=== PATIENT | male | born 1945 | race Caucasian/White ===

== ENCOUNTER → 2019-12-18 09:06 | Outpatient (BNVA) | payer OTHER, SELFPAY | PROVIDERS: Family Provider Family Medicine Adult Medicine; PCP Emergency Medicine Emergency Medical Services; Visit Provider Urology | DX: C68.9 Malignant neoplasm of urinary organ, unspecified (principal); N47.1 Phimosis; N48.1 Balanitis | CPT/HCPCS: 81001 ==

== ENCOUNTER → 2020-08-09 10:06 | Outpatient (BNVA) | payer OTHER, SELFPAY | PROVIDERS: Family Provider Family Medicine Adult Medicine; PCP Emergency Medicine Emergency Medical Services; Visit Provider Urology | DX: C68.9 Malignant neoplasm of urinary organ, unspecified (principal); N48.1 Balanitis; N47.1 Phimosis | CPT/HCPCS: 81003 ==

== ENCOUNTER → 2021-02-08 14:02 | Outpatient (BNVA) | payer OTHER, SELFPAY | PROVIDERS: Family Provider Family Medicine Adult Medicine; PCP Emergency Medicine Emergency Medical Services; Visit Provider Urology | DX: N40.0 Benign prostatic hyperplasia without lower urinary tract symptoms (principal); Z12.5 Encounter for screening for malignant neoplasm of prostate; C68.9 Malignant neoplasm of urinary organ, unspecified; N47.1 Phimosis; N48.1 Balanitis | CPT/HCPCS: 81003; G0103 ==

== ENCOUNTER → 2021-05-17 14:04 | Outpatient (BNVA) | payer OTHER, SELFPAY | PROVIDERS: Family Provider Family Medicine Adult Medicine; PCP Emergency Medicine Emergency Medical Services; Referring Provider Emergency Medicine Emergency Medical Services; Visit Provider Internal Medicine | DX: E11.65 Type 2 diabetes mellitus with hyperglycemia (principal); E11.59 Type 2 diabetes mellitus with other circulatory complications; E11.22 Type 2 diabetes mellitus with diabetic chronic kidney disease; N18.30 Chronic kidney disease, stage 3 unspecified; I25.10 Atherosclerotic heart disease of native coronary artery without angina pectoris; E78.5 Hyperlipidemia, unspecified; C68.9 Malignant neoplasm of urinary organ, unspecified; Z79.4 Long term (current) use of insulin; Z79.84 Long term (current) use of oral hypoglycemic drugs ==

== ENCOUNTER 2021-05-17 15:41 | Outpatient (CLI) | payer OTHER, SELFPAY ==
[2021-05-17 17:16] LABS: Estmated Average Glucose 212
[2021-05-17 17:40] LABS: Alanine Aminotransferase 50 U/L (0-41); Albumin Level 4.8 g/dL (3.5-5.2); Alkaline Phosphatase 70 IU/L (40-130); Anion Gap 19.8 (5-19); Aspartate Amino Transferase 41 U/L (0-40); Blood Urea Nitrogen 22 mg/dL (8-23); Calcium 9.8 mg/dL (8.5-10.5); Carbon Dioxide 23 mmol/L (22-29); Chloride 98 mmol/L (98-107); Chol HDL Ratio 4.81 mg/dL (1.0-5.00); Cholesterol 178 mg/dL (0-200); Globulin 2.6 g/dL (1.3-4.6); Glucose 128 mg/dL (65-115); HDL Cholesterol 37 mg/dL (60-100); LDL Cholesterol Calculated 82 mg/dL (50-129); LDL HDL Ratio 2.22 RATIO (0.00-3.22); Osmolality Calculated 289 mOsm/kg (285-295); Potassium 3.8 mmol/L (3.5-5.1); Sodium 137 mmol/L (136-145); Total Bilirubin 0.4 mg/dL (0.15-1.2); Total Protein 7.4 g/dL (6.6-8.7); Triglycerides 293 mg/dL (0-150)
== END 2021-05-17 15:42 | disposition home or self-care (01) ==
PROVIDERS: PCP Emergency Medicine Emergency Medical Services; Visit Provider Internal Medicine
DX: E11.9 Type 2 diabetes mellitus without complications (principal)
CPT/HCPCS: 80053; 80061; 83036; 99204

== ENCOUNTER → 2021-05-31 15:00 | Outpatient (BNVA) | payer OTHER, SELFPAY | PROVIDERS: PCP Emergency Medicine Emergency Medical Services; Visit Provider Internal Medicine | DX: E11.65 Type 2 diabetes mellitus with hyperglycemia (principal); E11.59 Type 2 diabetes mellitus with other circulatory complications; E11.22 Type 2 diabetes mellitus with diabetic chronic kidney disease; N18.30 Chronic kidney disease, stage 3 unspecified; I25.10 Atherosclerotic heart disease of native coronary artery without angina pectoris; E78.5 Hyperlipidemia, unspecified; E16.0 Drug-induced hypoglycemia without coma; T38.3X5A Adverse effect of insulin and oral hypoglycemic [antidiabetic] drugs, initial encounter; Z79.4 Long term (current) use of insulin; Z79.84 Long term (current) use of oral hypoglycemic drugs; Z87.891 Personal history of nicotine dependence | CPT/HCPCS: 99214; 99215 ==

== ENCOUNTER → 2021-08-30 14:05 | Outpatient (BNVA) | payer OTHER, SELFPAY | PROVIDERS: PCP Emergency Medicine Emergency Medical Services; Visit Provider Internal Medicine | DX: E11.65 Type 2 diabetes mellitus with hyperglycemia (principal); E11.59 Type 2 diabetes mellitus with other circulatory complications; E11.22 Type 2 diabetes mellitus with diabetic chronic kidney disease; N18.30 Chronic kidney disease, stage 3 unspecified; E16.0 Drug-induced hypoglycemia without coma; T38.3X5A Adverse effect of insulin and oral hypoglycemic [antidiabetic] drugs, initial encounter; I25.10 Atherosclerotic heart disease of native coronary artery without angina pectoris; E78.5 Hyperlipidemia, unspecified; C68.9 Malignant neoplasm of urinary organ, unspecified; Z79.4 Long term (current) use of insulin; Z79.84 Long term (current) use of oral hypoglycemic drugs | CPT/HCPCS: 80053; 80061; 83036; 99214 ==

== ENCOUNTER → 2021-11-30 13:57 | Outpatient (BNVA) | payer OTHER, SELFPAY | PROVIDERS: PCP Emergency Medicine Emergency Medical Services; Visit Provider Internal Medicine | DX: E11.22 Type 2 diabetes mellitus with diabetic chronic kidney disease (principal); N18.30 Chronic kidney disease, stage 3 unspecified; E11.59 Type 2 diabetes mellitus with other circulatory complications; E11.65 Type 2 diabetes mellitus with hyperglycemia; E11.649 Type 2 diabetes mellitus with hypoglycemia without coma; E78.5 Hyperlipidemia, unspecified; I25.10 Atherosclerotic heart disease of native coronary artery without angina pectoris; E16.0 Drug-induced hypoglycemia without coma; T38.3X5A Adverse effect of insulin and oral hypoglycemic [antidiabetic] drugs, initial encounter; Z79.4 Long term (current) use of insulin; Z79.84 Long term (current) use of oral hypoglycemic drugs; Z87.891 Personal history of nicotine dependence | CPT/HCPCS: 36415; 80053; 80061; 83036; 99214 ==

== ENCOUNTER 2022-02-14 08:15 | Outpatient (CLI) | payer OTHER, SELFPAY ==
[2022-02-14 09:11] LABS: PSA Screen - Urology 5.23 ng/mL (0-4)
== END 2022-02-14 08:16 | disposition home or self-care (01) ==
LOC: LAB 08:16
PROVIDERS: PCP Emergency Medicine Emergency Medical Services; Visit Provider Urology
DX: Z12.5 Encounter for screening for malignant neoplasm of prostate (principal); N48.1 Balanitis
CPT/HCPCS: 36415; 52000; 81003; 99213; G0103

== ENCOUNTER → 2022-04-10 16:13 | Outpatient (BNVA) | payer OTHER, SELFPAY | PROVIDERS: PCP Emergency Medicine Emergency Medical Services; Visit Provider Internal Medicine | DX: E11.65 Type 2 diabetes mellitus with hyperglycemia (principal); E78.5 Hyperlipidemia, unspecified; N18.30 Chronic kidney disease, stage 3 unspecified; E11.22 Type 2 diabetes mellitus with diabetic chronic kidney disease; E11.59 Type 2 diabetes mellitus with other circulatory complications; E11.649 Type 2 diabetes mellitus with hypoglycemia without coma; E83.52 Hypercalcemia; I25.10 Atherosclerotic heart disease of native coronary artery without angina pectoris; E16.0 Drug-induced hypoglycemia without coma; T38.3X5A Adverse effect of insulin and oral hypoglycemic [antidiabetic] drugs, initial encounter; Z79.84 Long term (current) use of oral hypoglycemic drugs; Z79.4 Long term (current) use of insulin | CPT/HCPCS: 36415; 80053; 80061; 83036; 99214 ==

== ENCOUNTER 2022-04-18 08:55 | Outpatient (CLI) | payer OTHER, SELFPAY ==
[2022-04-18 10:50] LABS: Calcium 10.6 mg/dL (8.5-10.5)
[2022-04-26 17:35] LABS: PTH Related Peptide (Protein) 9 pg/mL (11-20)
== END 2022-04-18 08:56 | disposition home or self-care (01) ==
PROVIDERS: PCP Emergency Medicine Emergency Medical Services; Visit Provider Internal Medicine
DX: E83.52 Hypercalcemia (principal)
CPT/HCPCS: 36415; 82310; 82542

== ENCOUNTER 2022-05-12 10:07 | Outpatient (CLI) | payer OTHER, SELFPAY ==
[2022-05-12 11:56] LABS: Prostate Specific AG Urology 4.51 ng/mL (0-4)
== END 2022-05-12 10:08 | disposition home or self-care (01) ==
LOC: LAB 10:09
PROVIDERS: PCP Emergency Medicine Emergency Medical Services; Visit Provider Urology
DX: R97.20 Elevated prostate specific antigen [PSA] (principal)
CPT/HCPCS: 36415; 84153

== ENCOUNTER → 2022-05-16 10:51 | Outpatient (BNVA) | payer OTHER, SELFPAY | PROVIDERS: PCP Emergency Medicine Emergency Medical Services; Visit Provider Urology | DX: C68.9 Malignant neoplasm of urinary organ, unspecified (principal); R97.20 Elevated prostate specific antigen [PSA]; Z12.5 Encounter for screening for malignant neoplasm of prostate; N48.1 Balanitis; N47.1 Phimosis | CPT/HCPCS: 99213 ==

== ENCOUNTER → 2022-08-15 13:47 | Outpatient (BNVA) | payer OTHER, SELFPAY | PROVIDERS: PCP Emergency Medicine Emergency Medical Services; Visit Provider Internal Medicine | DX: E11.65 Type 2 diabetes mellitus with hyperglycemia (principal); E11.649 Type 2 diabetes mellitus with hypoglycemia without coma; E11.22 Type 2 diabetes mellitus with diabetic chronic kidney disease; E11.59 Type 2 diabetes mellitus with other circulatory complications; N18.30 Chronic kidney disease, stage 3 unspecified; E78.5 Hyperlipidemia, unspecified; I25.10 Atherosclerotic heart disease of native coronary artery without angina pectoris; X58.XXXA Exposure to other specified factors, initial encounter; Z79.84 Long term (current) use of oral hypoglycemic drugs; Z79.4 Long term (current) use of insulin; E16.0 Drug-induced hypoglycemia without coma; T38.3X5A Adverse effect of insulin and oral hypoglycemic [antidiabetic] drugs, initial encounter | CPT/HCPCS: 99214 ==

== ENCOUNTER 2022-11-08 20:48 | Inpatient (IN) | payer OTHER, SELFPAY ==
[2022-11-08 20:55] VITALS: BP 130/65; PULSE 123; RESP 22; TEMP 37; O2SAT 90
--- NOTE | 2022-11-08 21:08 | ECG_ITS ---
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 Measurements Intervals [place] Rate: 124 P: 59 [place]: 178 QRS: 52 QRSD: 84 T: 77 QT: 318 QTc: 458 Interpretive Statements SINUS TACHYCARDIA ABNORMAL RHYTHM ECG INTERPRETATION BASED ON A DEFAULT AGE OF 40 YEARS Compared to ECG 06/07/2017 12:18:39 Sinus rhythm no longer present Electronically Signed On 11-09-2022 14:46:26 CDT by Dale Giron M.D. [id number]
--- NOTE | 2022-11-08 21:10 | XRR_ITS ---
PROCEDURE INFORMATION: Exam: XR Chest Exam date and time: 11/08/2022 9:15 PM Age: 77 years old Clinical indication: Shortness of breath; Additional info: SOB TECHNIQUE: Imaging protocol: Radiologic exam of the chest. Views: 1 view. COMPARISON: No relevant prior studies available. FINDINGS: Lungs: Lungs are hyperinflated. Clear parenchyma. Pleural spaces: No pleural effusion. No pneumothorax. Heart/Mediastinum: Cardiac silhouette is normal in size for technique. Vasculature: Mild calcification at the aortic arch. Bones/joints: Age appropriate. XR/XR chest 1V portable [id number] IMPRESSION: Hyperinflated but clear lungs. No other acute cardiopulmonary abnormality.
[2022-11-08 21:41] LABS: Basophils % 0.4 %; Eosinophils % 0.1 %; Lymphocytes # 1.4 10^3/uL (0.8-4.8); Lymphocytes % 15.3 %; Mean Corpuscular HGB Conc 34.1 g/dL (30.0-36.0); Mean Corpuscular Hemoglobin 30.4 pg (28.0-34.0); Mean Corpuscular Volume 89.1 fl (80-94); Mean Platelet Volume 9.6 fL (7.4-10.4); Monocytes % 11.2 %; Neutrophils % 72.4 %; Nucleated Red Blood Cells % 0 %; Platelet Count 163 10^3/cmm (130-400)
[2022-11-08 21:52] LABS: INR 1.13 (0.8-1.2)
--- NOTE | 2022-11-08 21:53 | CTR_ITS ---
PROCEDURE INFORMATION: Exam: CT Head Without Contrast Exam date and time: 11/08/2022 10:50 PM Age: 77 years old Clinical indication: Weakness, extremity; Bilateral TECHNIQUE: Imaging protocol: Computed tomography of the head without contrast. Radiation optimization: All CT scans at this facility use at least one of these dose optimization techniques: automated exposure control; mA and/or kV adjustment per patient size (includes targeted exams where dose is matched to clinical indication); or iterative reconstruction. REPORTING DATA: Count of CT and Cardiac NM exams in prior 12 months: This patient has received 0 known CTs and 0 known cardiac nuclear medicine studies in the 12 months prior to the current study. COMPARISON: No relevant prior studies available. RADIATION DOSE METRICS: Total DLP (mGy-cm): 1081.33 FINDINGS: Brain: No hemorrhage. Unremarkable white matter. No mass effect. Preserved payton-white interfaces. Cerebral ventricles: No ventriculomegaly. Paranasal sinuses: Visualized sinuses are unremarkable. No fluid levels. Mastoid air cells: Visualized mastoid air cells are well aerated. Bones/joints: Unremarkable. No acute fracture. Soft tissues: Unremarkable. CT/CT head wo con* [id number] IMPRESSION: No evidence of acute intracranial hemorrhage, mass effect, or edema.
--- NOTE | 2022-11-08 21:53 | CTR_ITS ---
PROCEDURE INFORMATION: Exam: CT Chest Without Contrast; Diagnostic Exam date and time: 11/08/2022 10:52 PM Age: 77 years old Clinical indication: Shortness of breath; Additional info: SOB TECHNIQUE: Imaging protocol: Diagnostic computed tomography of the chest without contrast. Radiation optimization: All CT scans at this facility use at least one of these dose optimization techniques: automated exposure control; mA and/or kV adjustment per patient size (includes targeted exams where dose is matched to clinical indication); or iterative reconstruction. REPORTING DATA: Count of CT and Cardiac NM exams in prior 12 months: This patient has received 0 known CTs and 0 known cardiac nuclear medicine studies in the 12 months prior to the current study. COMPARISON: CR (CHEST, ) 11/08/2022 9:15 PM RADIATION DOSE METRICS: Total DLP (mGy-cm): 536.18 FINDINGS: Lungs: Biapical scarring. 4 mm left lower lobe calcified granuloma. Solid nodule abutting the right major fissure measures 4 mm on series 5, image 36. Minimal subpleural reticular opacities are seen in the lung bases. No focal pneumonia. Small right lower lobe calcified granuloma. Minimal apical paraseptal emphysema. Pleural spaces: Unremarkable. No pneumothorax. No pleural effusion. Heart: Unremarkable. No cardiomegaly. No pericardial effusion. Coronary arteries: Mild coronary artery atherosclerosis. Lymph nodes: Left hilar calcified nodes consistent with old granulomatous disease. Vasculature: Unremarkable. No aortic aneurysm. Diaphragm: Small hiatal hernia. Liver: Fatty liver. Spleen: Splenic granuloma. Adrenal glands: Thickening of the adrenal glands likely adenomatous hyperplasia. Bones/joints: Unremarkable. No acute fracture. Soft tissues: Unremarkable. CT/CT chest wo con [id number] IMPRESSION: 1. No evidence of pneumonia. Minimal subpleural interstitial opacities in the lung bases are favored to be chronic. Correlate with history. 2. There is a 4 mm solid right lower lobe nodule abutting the fissure most likely an intrapulmonary lymph node. For patients at low risk (minimal or absent history of smoking and of other known risk factors), no routine follow-up is indicated. For patients at high risk (history of smoking or of other known risk factors), consider optional CT Chest at 12 months. (Reference: Jhonny) REFERENCES: Jhonny Rich et al. Guidelines for Management of Incidental Pulmonary Nodules Detected on CT Images: From the Fleischner Society 2017. Radiology. 2017;284(1):228-243.
[2022-11-08 21:55] LABS: D Dimer 0.28 ug/mIFEU (0-0.59)
--- NOTE | 2022-11-08 21:55 | W.ED.SOB ---
HPI - SOB/Dyspnea General: Chief Complaint: Shortness of Breath/Dyspnea Stated Complaint: sob low o2 Time Seen by Provider: 11/08/22 21:09 Source: patient Mode of arrival: ambulatory Limitations: no limitations History of Present Illness: HPI Narrative: 77-year-old male states that he felt like he got overheated 2 days ago he states that since then he just has not felt right. He states he has had some shortness of breath daughter states he does seem to have some confusion at times as well. States he just feels weak no focal deficits no slurred speech he is answering all my questions appropriately but he states that he did feel confused earlier today. He is tachycardic with some mild hypoxia. He denies any cough denies any chest pain. Associated symptoms: Deny abdominal pain, chest pain, fever(s), nausea or vomiting Review of Systems Const: Reports: fatigue and malaise; Denies: fever(s) or chills Eyes: Denies: blurry vision or eye discomfort ENMT: Denies: throat pain or dental pain Card: Denies: chest pain Resp: Reports: dyspnea GI: Denies: abdominal pain, nausea, vomiting or diarrhea : Denies: dysuria or difficulty starting urination Musc: Denies: neck pain or back pain Skin/Breast: Denies: rash Neuro: Reports: confusion; Denies: headache(s) Psych: Denies: depression PFSH ED PFSH: Medical History BPH (benign prostatic hyperplasia) Elevated PSA Mild in the 4-5 range. No distinct nodularity but some mild firmness on LALO at evaluation January 2022 H/O coronary angiogram Incomplete bladder emptying Transitional cell carcinoma Surgical History H/O transurethral destruction of bladder lesion History of biopsy of bladder Family History Mother , at age 90 complications after cholecystectomy No problems noted. Father , at age 78- Heart disease Social History Smoking and tobacco status: former smoker Alcohol intake: never Marital status: Current occupational status: retired Physical Exam Const: COMMON NORMALS: patient oriented x3 HENMT: COMMON NORMALS: normocephalic and atraumatic HEAD & SCALP: normocephalic and atraumatic Neck/C-Spine: COMMON NORMALS: full ROM and supple Chest: COMMONS NORMALS: normal inspection of the chest and normal palpation of entire chest wall Resp: COMMON NORMALS: normal respiratory effort, No retractions, No use of accessory muscles and clear to auscultation bilaterally AUSCULTATION: clear to auscultation bilaterally Cardio: COMMON NORMALS: regular rhythm and No murmurs present (Cardio) RATE: tachycardic RHYTHM: regular rhythm GI: COMMON NORMALS: Normal to inspection, nondistended, normoactive bowel sounds present, Soft to palpation, non-tender and no masses PALPATION: Yes Soft to palpation Extremity: COMMON NORMALS: normal to inspection and full ROM Neuro: COMMON NORMALS: patient oriented x3, moves all extremities and no focal motor deficits CRANIAL NERVES: Yes CN normal except as noted SPEECH: speech normal GAIT: Yes Normal gait present MOTOR EXAM: 5/5 motor strength present throughout Psych: COMMON NORMALS: mental status grossly normal, Normal thought process present and cooperative THOUGHT PROCESS: Normal thought process present Skin: COMMON NORMALS: no rashes or lesions noted and no wounds GENERAL SKIN EXAM: no rashes or lesions noted Course Vital Signs: Vital signs: Vital Signs Temperature 98.6 F 11/08/22 20:55 Pulse Rate 132 H 11/08/22 23:30 Respiratory Rate 30 H 11/08/22 23:30 Blood Pressure 150/84 11/08/22 23:30 Pulse Oximetry 94 11/08/22 23:30 Oxygen Delivery Me thod Nasal Cannula 11/08/22 23:30 Oxygen Flow Rate 2 11/08/22 23:30 MDM - SOB/Dyspnea Medical Decision Making Patient presents with confusion along with some shortness of breath he has been hypoxic here requiring 2 to [address] of his chest showed no acute abnormalities. His D-dimer here is negative BNP is negative as well no signs of PE unable to do a CT angiogram due to his creatinine but he did have a negative D-dimer he has been answering my questions here appropriately but per family been quite confused throughout the day spoke to the hospitalist will admit at this time for observation due to his hypoxia and confusion Medical Records I reviewed the patient's medical records. Lab Data I reviewed the patient's lab results. 11/08/22 21:30 11/08/22 21:30 Labs/Radiology: Radiology Impressions Chest X-Ray 11/08/22 21:10 IMPRESSION: Hyperinflated but clear lungs. No other acute cardiopulmonary abnormality. Chest CT 11/08/22 21:53 IMPRESSION: 1. No evidence of pneumonia. Minimal subpleural interstitial opacities in the lung bases are favored to be chronic. Correlate with history. 2. There is a 4 mm solid right lower lobe nodule abutting the fissure most likely an intrapulmonary lymph node. For patients at low risk (minimal or absent history of smoking and of other known risk factors), no routine follow-up is indicated. For patients at high risk (history of smoking or of other known risk factors), consider optional CT Chest at 12 months. (Reference: Jhonny) REFERENCES: Jhonny Rich, et al. Guidelines for Management of Incidental Pulmonary Nodules Detected on CT Images: From the Fleischner Society 2017. Radiology. 2017;284(1):228-243. Head CT 11/08/22 21:53 IMPRESSION: No evidence of acute intracranial hemorrhage, mass effect, or edema. Laboratory Results WBC 9.0 10^3/uL (4.0-10.0) 11/08/22 21:30 RBC 4.60 10^6/uL (4.1-5.3) 11/08/22 21:30 Hgb 14.0 g/dL (11.7-16.6) 11/08/22 21:30 Hct 41.0 % (42.0-52.0) L 11/08/22 21:30 MCV 89.1 fl (80-94) 11/08/22 21:30 MCH 30.4 pg (28.0-34.0) 11/08/22 21:30 MCHC 34.1 g/dL (30.0-36.0) 11/08/22 21:30 RDW 13.0 % (12.1-15.1) 11/08/22 21:30 Plt Count 163 10^3/cmm (130-400) 11/08/22 21: MPV 9.6 fL (7.4-10.4) 11/08/22 21: Neut % (Auto) 72.4 % 11/08/22 21: Lymph % (Auto) 15.3 % 11/08/22 21:30 [place] % (Auto) 11.2 % 11/08/22 21: Eos % (Auto) 0.1 % 11/08/22 21:30 Baso % (Auto) 0.4 % 11/08/22 21:30 Neut # (Auto) 6.50 10^3/uL (1.8-7.7) 11/08/22 21: Lymph # (Auto) 1.4 10^3/uL (0.8-4.8) 11/08/22 21: [place] # (Auto) 1.0 10^3/uL (0.2-0.9) H 11/08/22 21: Eos # (Auto) 0.0 10^3/uL (0.0-0.8) 11/08/22 21: Baso # (Auto) 0.0 10^3/uL (0.0-0.1) 11/08/22 21: Nucleated RBC % (auto) 0 % 11/08/22 21: Nucleated RBCs # 0.0 /100WBC 11/08/22 21: PT 14.90 SECONDS (12.1-14.9) 11/08/22 21: INR 1.13 (0.8-1.2) 11/08/22 21: D-Dimer 0.28 ug/mIFEU (0-0.59) 11/08/22 21:30 Specimen Type Arterial 11/08/22 22:12 Sample Site Radial, right 11/08/22 22:12 ABG pH 7.43 (7.35-7.45) 11/08/22 22:12 ABG pCO2 37.2 mmHg (35-45) 11/08/22 22:12 ABG pO2 72.5 mmHg (80.0-100.0) L 11/08/22 22:12 ABG HCO3 24.8 mmol/L (22-26) 11/08/22 22:12 ABG Base Excess 0.7 mmol/L (-2.0-2.0) 11/08/22 22:12 [place] Test Pos 11/08/22 22:12 Hematocrit 43.1 % (42-52) 11/08/22 22:12 O2 Delivery Device Nc 11/08/22 22:12 O2 Liters/Min 2.0 % 11/08/22 22:12 FiO2 28.0 % 11/08/22 22:12 Pastrycook ID Autumn 11/08/22 22:12 Sodium 134 mmol/L (136-145) L 11/08/22 21:30 Potassium 4.5 mmol/L (3.5-5.1) 11/08/22 21:30 Chloride 94 mmol/L (98-107) L 11/08/22 21:30 Carbon Dioxide 26 mmol/L (22-29) 11/08/22 21:30 Anion Gap 18.5 (5-19) 11/08/22 21:30 BUN 33 mg/dL (8-23) H 11/08/22 21:30 Creatinine 2.5 mg/dL (0.7-1.2) H 11/08/22 21:30 GFR Calculation Not Reportable 11/08/22 21:30 Glucose 193 mg/dL (65-115) H 11/08/22 21:30 POC Glucose 200 mg/dL (70-110) H 11/08/22 22:05 Calculated Osmolality 291 mOsm/kg (285-295) 11/08/22 21:30 Calcium 10.3 mg/dL (8.5-10.5) 11/08/22 21:30 Total Bilirubin 0.7 mg/dL (0.15-1.2) 11/08/22 21:30 AST 36 U/L (0-40) 11/08/22 21:30 ALT 37 U/L (0-41) 11/08/22 21:30 Alkaline Phosphatase 57 U/L (40-130) 11/08/22 21:30 Troponin T Baseline 17 ng/L (0-15) H 11/08/22 21:30 NT-Pro-B Natriuret Pep 244 pg/mL (0-450) 11/08/22 21:30 Total Protein 7.9 g/dL (6.6-8.7) 11/08/22 21:30 Albumin 4.8 g/dL (3.5-5.2) 11/08/22 21:30 Globulin 3.1 g/dL (1.3-4.6) 11/08/22 21:30 Urine Color Yellow (Yellow) 11/08/22 23:33 Urine Appearance Sl hazy (CLEAR) A 11/08/22 23:33 Urine pH 5 (5-7) 11/08/22 23:33 Ur Specific [place] 1.025 (1.005-1.030) 11/08/22 23:33 Urine Protein Trace (Negative) 11/08/22 23:33 Urine Glucose (UA) 2+ (Normal) H 11/08/22 23:33 Urine Ketones Negative (Negative) 11/08/22 23:33 Urine Blood Neg (Negative) 11/08/22 23:33 Urine Nitrate Negative (Negative) 11/08/22 23:33 Urine Bilirubin 1+ (Negative) H 11/08/22 23:33 Urine Urobilinogen Neg mg/dL (Negative) 11/08/22 23:33 Ur Leukocyte Esterase 1+ (Negative) H 11/08/22 23:33 Urine RBC None /hpf (0-2) 11/08/22 23:33 Urine WBC 5-10 /hpf (0-5) H 11/08/22 23:33 Ur Squamous Epith Cells None /hpf (0-5) 11/08/22 23:33 Ur Transition Epith Cell 0-4 /hpf 11/08/22 23:33 Amorphous Sediment 1+ /hpf 11/08/22 23:33 Urine Bacteria 1+ /hpf (NONE) H 11/08/22 23:33 Hyaline Casts 0-4 /lpf H 11/08/22 23:33 Urine Mucus 2+ /hpf 11/08/22 23:33 EKG Data EKG 1: I personally reviewed and interpreted this EKG as follows: EKG Interpretation Date: 11/08/22 EKG interpretation time: 21:08 Interpretation: sinus tach hr [address] or t wave abnormalities qrs 84 qtc 392 Discharge Plan Discharge Patient Disposition: Placed in Observation Clinical Impression: Hypoxia, Acute kidney injury, Confusion Condition: Stable Prescriptions: No Action hydrochlorothiazide 25 mg tablet 25 mg PO DAILY lovastatin 40 mg tablet 40 mg PO DAILY metoprolol tartrate 100 mg tablet 100 mg PO BID aspirin [Adult Low Dose Aspirin] 81 mg tablet,delayed release (DR/EC) 81 mg PO DAILY lisinopril 40 mg tablet 40 mg PO DAILY tamsulosin 0.4 mg capsule 0.4 mg PO BID omega-3 fatty acids [Fish Oil Concentrate] 1,000 mg capsule 1,000 mg PO BID metformin 1,000 mg tablet 1,000 mg PO BID Lantus U-100 Insulin 100 unit/mL solution 15 unit SUBCUT DAILY lidocaine HCl 2 % jelly 1 applic INTRA-URET ONCE Qty: 1 0RF alogliptin 12.5 mg tablet 12.5 mg PO DAILY Qty: 90 3RF Rx Instructions: Take one tablet by mouth daily. fenofibrate nanocrystallized 48 mg tablet 48 mg PO DAILY Qty: 90 3RF Rx Instructions: Take one tablet by mouth daily. 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
[2022-11-08 22:00] VITALS: BP 108/67; PULSE 122; O2SAT 88
[2022-11-08 22:02] LABS: Troponin(5th) Baseline 17 ng/L (0-15)
[2022-11-08 22:08] LABS: Glucose Point of Care 200 mg/dL (70-110)
[2022-11-08 22:11] LABS: Alanine Aminotransferase 37 U/L (0-41); Albumin Level 4.8 g/dL (3.5-5.2); Alkaline Phosphatase 57 U/L (40-130); Anion Gap 18.5 (5-19); Aspartate Amino Transferase 36 U/L (0-40); Blood Urea Nitrogen 33 mg/dL (8-23); Calcium 10.3 mg/dL (8.5-10.5); Carbon Dioxide 26 mmol/L (22-29); Chloride 94 mmol/L (98-107); Globulin 3.1 g/dL (1.3-4.6); Glucose 193 mg/dL (65-115); NT Pro B Type Natriuretic Pept 244 pg/mL (0-450); Osmolality Calculated 291 mOsm/kg (285-295); Potassium 4.5 mmol/L (3.5-5.1); Sodium 134 mmol/L (136-145); Total Bilirubin 0.7 mg/dL (0.15-1.2); Total Protein 7.9 g/dL (6.6-8.7)
[2022-11-08 22:25] LABS: ABG PCO2 37.2 mmHg (35-45); ABG PH Result 7.43 (7.35-7.45); Arterial Blood Gas Hematocrit 43.1 % (42-52); Base Excess ABG 0.7 mmol/L (-2.0-2.0); Blood Gas Allen Test Pos; Blood Gas Operator Identificat MONRO; Blood Gas Sample Site Radial, right; Blood Gas Sample Type Arterial; HCO3 ABG 24.8 mmol/L (22-26); Oxygen Device NC; PO2 ABG 72.5 mmHg (80.0-100.0)
[2022-11-08] MEDS: sodium chloride 0.9% 1,000 ML 999 ML IV (22:41)
[2022-11-08 23:00] VITALS: BP 110/68; PULSE 125; O2SAT 94
--- NOTE | 2022-11-08 23:24 | ECG_ITS ---
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 Measurements Intervals [place] Rate: 118 P: 54 [place]: 186 QRS: 46 QRSD: 85 T: 62 QT: 319 QTc: 448 Interpretive Statements SINUS TACHYCARDIA ABNORMAL RHYTHM ECG Compared to ECG 11/08/2022 21:08:35 No significant changes Electronically Signed On 11-09-2022 14:52:47 CDT by Dale Giron M.D. [id number]
[2022-11-08 23:30] VITALS: BP 150/84; PULSE 132; RESP 30; O2SAT 94
[2022-11-09] VITALS (12 sets, daily range): BP systolic 128–153; BP diastolic 63–74; PULSE 87–126; RESP 16–18; TEMP 36.8–38.3; O2SAT 93–97
[2022-11-09 00:05] LABS: Glucose Urine UA 2+ (Normal); Ketones Urine Negative (Negative); Protein Urine Trace (Negative); Specific Gravity, Urine 1.025 (1.005-1.030); Urine Appearance SL Hazy (CLEAR); Urine Color Yellow (Yellow); pH Urine 5 (5-7)
[2022-11-09 00:06] LABS: Add Urine Microscopic? YES; Bilirubin Urine 1+ (Negative); Blood Urine Neg (Negative); Leukocyte Esterase Urine 1+ (Negative); Nitrate Urine Negative (Negative); Transitional Epi Cells Urine 0-4 /hpf; Urobilinogen Urine Neg (Negative)
[2022-11-09 00:07] LABS: Add Urine Culture? No; Amorphous Sediment Urine 1+ /hpf; Bacteria Urine 1+ /hpf; Hyaline Casts Urine 0-4 /lpf; Mucus Urine 2+ /hpf
[2022-11-09 00:13] LABS: Troponin 5 2HR 16.47 ng/L (0-15); Troponin 5 2HR Delta -0.53 ABS# (0-10)
[2022-11-09 00:26] LABS: Creatine Phosphokinase 56 U/L (39-308)
--- NOTE | 2022-11-09 01:01 | CTR_ITS ---
PROCEDURE INFORMATION: Exam: CT Abdomen And Pelvis Without Contrast Exam date and time: 11/09/2022 2:26 AM Age: 77 years old Clinical indication: Other: Ras; Patient HX: HX prostate CA; Additional info: Ras, h/o prostate cancer TECHNIQUE: Imaging protocol: Computed tomography of the abdomen and pelvis without contrast. Radiation optimization: All CT scans at this facility use at least one of these dose optimization techniques: automated exposure control; mA and/or kV adjustment per patient size (includes targeted exams where dose is matched to clinical indication); or iterative reconstruction. REPORTING DATA: Count of CT and Cardiac NM exams in prior 12 months: This patient has received 2 known CTs and 0 known cardiac nuclear medicine studies in the 12 months prior to the current study. COMPARISON: CT chest wo con [id number] 11/08/2022 10:52 PM RADIATION DOSE METRICS: Total DLP (mGy-cm): 890.67 FINDINGS: Lungs: Minor scarring at each lung base. Calcified granuloma in the left lower lobe. Heart: Normal heart size. Diaphragm: Small sliding hiatal hernia. Liver: Homogeneous low attenuation throughout the liver is compatible with fatty infiltration. Liver measures 19.0 cm in length. Gallbladder and bile ducts: No regional inflammation. No calcified stones. No ductal dilation. Pancreas: Normal. No ductal dilation. Spleen: Scattered splenic calcifications are noted. Spleen is normal in size. Adrenal glands: A 7 mm right adrenal nodule is noted. Normal left adrenal. Kidneys and ureters: Kidneys are symmetric without evidence of obstruction. Stomach and bowel: Unremarkable. No obstruction. No mural thickening. Appendix: Normal appendix is confirmed. Intraperitoneal space: No free air. No significant fluid collection. Vasculature: Moderate aortoiliac calcific atherosclerosis with approximately 50% stenosis at the origin of the superior mesenteric artery. Plaque noted at the origin of each renal artery with moderate luminal narrowing. Lymph nodes: No enlarged lymph nodes. Urinary bladder: See Reproductive finding. Reproductive: Prostate is enlarged measuring 7.0 x 6.4 x 6.5 cm. Prostate indents the base of the urinary bladder. Bones/joints: Mild lumbar spine degenerative change with patent spinal canal. Soft tissues: Unremarkable. CT/CT kidney stone [id number] IMPRESSION: 1. Kidneys are symmetric without evidence obstruction. 2. Moderate diffuse arterial calcification. There is moderate luminal narrowing at the origin of each renal artery. Approximately 50% narrowing at the origin of the superior mesenteric artery. 3. Enlarged prostate indents the base of the urinary bladder.
--- NOTE | 2022-11-09 01:05 | PM.HP ---
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 He currently presented to the emergency room with chief complaints of generalized weakness, intermittent confusion nonspecific symptoms of feeling unwell for the past 3 days. Patient states that he thinks he got overheated which caused him to have weakness and fatigue. He has not recently worked outdoors extensively. Upon arrival at the ER he was alert awake and oriented x3. CT of the head did not show any acute stroke. He was noted to have sinus tachycardia with heart rate in 1 20-1 30 and a new oxygen requirement of 2 L/min. He was initially admitted to observation for new onset hypoxia and tachycardia. Denied any chest pain dyspnea or palpitations. Subsequently upon being transferred to [facility] she spiked a fever to 101 Fahrenheit. Patient was unaware of having fevers at home, however does report having some chills over the past 3 days. Also endorses dysuria with difficulty passing urine with a feeling of incomplete bladder evacuation. Reports that he has has a history of UTIs however has not taken any antibiotics recently[place] has been had several tick bites recently. No complaints of cough chest pain dyspnea palpitations, URI type symptoms, abdominal pain nausea or vomiting. poor appetite+ Review of Systems General: Reports: 10 or more systems reviewed and unremarkable except in HPI and below Const: Denies: fever(s), chills or body aches Eyes: Denies: change in vision, blurry vision or photophobia ENMT: Reports: hoarseness; Denies: throat pain, enlarged tonsils, odynophagia or nasal congestion Card: Denies: chest pain, palpitations, irregular heart rhythm, edema, swelling of feet/ankles, lightheadedness, pre-syncope, dyspnea on exertion or orthopnea Resp: Denies: dyspnea, productive cough, non-productive cough, wheezing, stridor, pain on inspiration, change in phlegm color, hemoptysis or chest congestion GI: Denies: abdominal pain, nausea, vomiting, hematemesis, coffee ground emesis, dysphagia, heartburn, diarrhea, constipation, GI cramping, change in stool character, hematochezia or melena : Denies: flank pain, dysuria, urinary frequency, urinary urgency, urinary hesitancy or hematuria Musc: Denies: neck pain, back pain, extremity pain, joint swelling, joint warmth or deformity Neuro: Denies: headache(s), numbness in extremities, weakness in extremities, sensory changes, difficulty walking, frequent falls, dizziness, vertigo, behavioral changes, Slurred speech present or seizure-like activity Psych: Denies: anxiety, depression, suicidal ideation or homicidal ideation Endo: Denies: polyuria, polydipsia, tired all the time, cold intolerance or hot flashes John/Lymph: Denies: easy bruising or easy bleeding Medications/Allergies Home Medications Medication Instructions Recorded Confirmed Last Taken Type metformin 1,000 mg tablet 1,000 mg PO BID 06/13/19 08/15/22 Unknown History omega-3 fatty acids 1,000 mg 1,000 mg PO BID 06/13/19 08/15/22 Unknown History capsule (Fish Oil Concentrate) tamsulosin 0.4 mg capsule 0.4 mg PO BID 06/13/19 08/15/22 Unknown History aspirin 81 mg tablet,delayed 81 mg PO DAILY 06/19/19 08/15/22 Unknown History release (Adult Low Dose Aspirin) hydrochlorothiazide 25 mg tablet 25 mg PO DAILY 06/19/19 08/15/22 Unknown History lisinopril 40 mg tablet 40 mg PO DAILY 06/19/19 08/15/22 Unknown History lovastatin 40 mg tablet 40 mg PO DAILY 06/19/19 08/15/22 Unknown History metoprolol tartrate 100 mg tablet 100 mg PO BID 06/19/19 08/15/22 Unknown History insulin glargine 100 unit/mL 15 unit SUBCUT DAILY 08/09/20 08/15/22 Unknown History subcutaneous solution (Lantus U-100 Insulin) alogliptin 12.5 mg tablet 12.5 mg PO DAILY #90 tabs 10/18/21 08/15/22 Unknown Rx fenofibrate nanocrystallized 48 mg 48 mg PO DAILY #90 tabs 10/19/21 08/15/22 Unknown Rx tablet insulin glargine 100 unit/mL 15 unit (0.15 mL) SUBCUT DAILY 90 01/09/23 04/18/23 Unknown Rx subcutaneous solution days #18 mL Allergies Allergy/AdvReac Type Severity Reaction Status Date / Time No Known Allergies Allergy Verified 11/08/22 21:10 PFSH Acute PFSH: Medical History BPH (benign prostatic hyperplasia) Elevated PSA Mild in the 4-5 range. No distinct nodularity but some mild firmness on LALO at evaluation January 2022 H/O coronary angiogram Incomplete bladder emptying Transitional cell carcinoma Surgical History H/O transurethral destruction of bladder lesion History of biopsy of bladder Family History Mother , at age 90 complications after cholecystectomy No problems noted. Father , at age 78- Heart disease Social History Smoking and tobacco status: former smoker Alcohol intake: never Marital status: Current occupational status: retired Vitals/I&O/Wt Last Vital Signs Temp 98.6 F 11/08/22 20:55 Pulse 132 H 11/08/22 23:30 Resp 30 H 11/08/22 23:30 BP 150/84 11/08/22 23:30 Pulse Ox 94 11/08/22 23:30 O2 Del Method Nasal Cannula 11/08/22 23:30 O2 Flow Rate 2 11/09/22 00:52 11/08/22 11/08/22 11/09/22 14:59 22:59 06:59 Intake Total 1000 / 1000 Balance 1000 / 1000 Weight last 48 hrs Weight 98.43 kg Physical Exam Narrative: General: dehydrated, dry coated tongue and mucus membranes, AO x3, HEENT: PERRLA, pupils bilaterally equal and reactive, pallors not present Chest: Normal vesicular breath sounds, no added sounds, equal good air entry bilaterally CVS: S1-S2 regular, no murmurs, no tachycardia, no gallops, no rubs Abdomen: Soft, nontender, no organomegaly, bowel sounds present Neuro: No focal deficits, no facial deformity, AO x3, power 5/5 in all limbs Data 11/08/22 21:30 11/08/22 21:30 Other Labs: Radiology Impressions Chest X-Ray 11/08/22 21:10 IMPRESSION: Hyperinflated but clear lungs. No other acute cardiopulmonary abnormality. Chest CT 11/08/22 21:53 IMPRESSION: 1. No evidence of pneumonia. Minimal subpleural interstitial opacities in the lung bases are favored to be chronic. Correlate with history. 2. There is a 4 mm solid right lower lobe nodule abutting the fissure most likely an intrapulmonary lymph node. For patients at low risk (minimal or absent history of smoking and of other known risk factors), no routine follow-up is indicated. For patients at high risk (history of smoking or of other known risk factors), consider optional CT Chest at 12 months. (Reference: Jhonny) REFERENCES: Jhonny Rich, et al. Guidelines for Management of Incidental Pulmonary Nodules Detected on CT Images: From the Fleischner Society 2017. Radiology. 2017;284(1):228-243. Head CT 11/08/22 21:53 IMPRESSION: No evidence of acute intracranial hemorrhage, mass effect, or edema. Abdomen/Pelvis CT 11/09/22 01:01 IMPRESSION: 1. Kidneys are symmetric without evidence obstruction. 2. Moderate diffuse arterial calcification. There is moderate luminal narrowing at the origin of each renal artery. Approximately 50% narrowing at the origin of the superior mesenteric artery. 3. Enlarged prostate indents the base of the urinary bladder. Laboratory Results WBC 9.0 10^3/uL (4.0-10.0) 11/08/22 21:30 RBC 4.60 10^6/uL (4.1-5.3) 11/08/22 21:30 Hgb 14.0 g/dL (11.7-16.6) 11/08/22 21:30 Hct 41.0 % (42.0-52.0) L 11/08/22 21:30 MCV 89.1 fl (80-94) 11/08/22 21:30 MCH 30.4 pg (28.0-34.0) 11/08/22 21:30 MCHC 34.1 g/dL (30.0-36.0) 11/08/22 21:30 RDW 13.0 % (12.1-15.1) 11/08/22 21:30 Plt Count 163 10^3/cmm (130-400) 11/08/22 21: MPV 9.6 fL (7.4-10.4) 11/08/22 21: Neut % (Auto) 72.4 % 11/08/22 21: Lymph % (Auto) 15.3 % 11/08/22 21: [place] % (Auto) 11.2 % 11/08/22 21: Eos % (Auto) 0.1 % 11/08/22 21: Baso % (Auto) 0.4 % 11/08/22 21: Neut # (Auto) 6.50 10^3/uL (1.8-7.7) 11/08/22 21: Lymph # (Auto) 1.4 10^3/uL (0.8-4.8) 11/08/22 21: [place] # (Auto) 1.0 10^3/uL (0.2-0.9) H 11/08/22 21: Eos # (Auto) 0.0 10^3/uL (0.0-0.8) 11/08/22 21: Baso # (Auto) 0.0 10^3/uL (0.0-0.1) 11/08/22 21: Nucleated RBC % (auto) 0 % 11/08/22: Nucleated RBCs # 0.0 /100WBC 11/08/22 21: PT 14.90 SECONDS (12.1-14.9) 11/08/22 21: INR 1.13 (0.8-1.2) 11/08/22 21: D-Dimer 0.28 ug/mIFEU (0-0.59) 11/08/22 21:30 Specimen Type Arterial 11/08/22 22:12 Sample Site Radial, right 11/08/22 22:12 ABG pH 7.43 (7.35-7.45) 11/08/22 22:12 ABG pCO2 37.2 mmHg (35-45) 11/08/22 22:12 ABG pO2 72.5 mmHg (80.0-100.0) L 11/08/22 22:12 ABG HCO3 24.8 mmol/L (22-26) 11/08/22 22:12 ABG Base Excess 0.7 mmol/L (-2.0-2.0) 11/08/22 22:12 [place] Test Pos 11/08/22 22:12 Hematocrit 43.1 % (42-52) 11/08/22 22:12 O2 Delivery Device Nc 11/08/22 22:12 O2 Liters/Min 2.0 % 11/08/22 22:12 FiO2 28.0 % 11/08/22 22:12 Process Design Engineer ID Autumn 11/08/22 22:12 Sodium 134 mmol/L (136-145) L 11/08/22 21:30 Potassium 4.5 mmol/L (3.5-5.1) 11/08/22 21:30 Chloride 94 mmol/L (98-107) L 11/08/22 21:30 Carbon Dioxide 26 mmol/L (22-29) 11/08/22 21:30 Anion Gap 18.5 (5-19) 11/08/22 21:30 BUN 33 mg/dL (8-23) H 11/08/22 21:30 Creatinine 2.5 mg/dL (0.7-1.2) H 11/08/22 21:30 GFR Calculation Not Reportable 11/08/22 21:30 Glucose 193 mg/dL (65-115) H 11/08/22 21:30 POC Glucose 217 mg/dL (70-110) H 11/09/22 06:59 Calculated Osmolality 291 mOsm/kg (285-295) 11/08/22 21:30 Lactic Acid 1.2 mmol/L (0.5-2.2) 11/09/22 03:32 Calcium 10.3 mg/dL (8.5-10.5) 11/08/22 21:30 Total Bilirubin 0.7 mg/dL (0.15-1.2) 11/08/22 21:30 AST 36 U/L (0-40) 11/08/22 21:30 ALT 37 U/L (0-41) 11/08/22 21:30 Alkaline Phosphatase 57 U/L (40-130) 11/08/22 21:30 Creatine Kinase 56 U/L (39-308) 11/08/22 23:35 Troponin T Baseline 17 ng/L (0-15) H 11/08/22 21:30 Troponin T 120 Minute 16.47 ng/L (0-15) H 11/08/22 23:35 Delta Troponin T -0.53 ABS# (0-10) L 11/08/22 23:35 Troponin T Hi Sens 6Hr 19.87 ng/L (0-15) H 11/09/22 03:32 Troponin T Hi Sens 6Hr Delta 2.87 ng/L (0-12) 11/09/22 03:32 NT-Pro-B Natriuret Pep 244 pg/mL (0-450) 11/08/22 21:30 Total Protein 7.9 g/dL (6.6-8.7) 11/08/22 21:30 Albumin 4.8 g/dL (3.5-5.2) 11/08/22 21:30 Globulin 3.1 g/dL (1.3-4.6) 11/08/22 21:30 Procalcitonin 0.22 ng/mL (0-0.5) 11/09/22 03:32 TSH 0.61 uIU/mL (0.27-4.20) 11/09/22 03:32 Urine Color Yellow (Yellow) 11/08/22 23:33 Urine Appearance Sl hazy (CLEAR) A 11/08/22 23:33 Urine pH 5 (5-7) 11/08/22 23:33 Ur Specific [place] 1.025 (1.005-1.030) 11/08/22 23:33 Urine Protein Trace (Negative) 11/08/22 23:33 Urine Glucose (UA) 2+ (Normal) H 11/08/22 23:33 Urine Ketones Negative (Negative) 11/08/22 23: Urine Blood Neg (Negative) 11/08/22 23:33 Urine Nitrate Negative (Negative) 11/08/22 23:33 Urine Bilirubin 1+ (Negative) H 11/08/22 23:33 Urine Urobilinogen Neg mg/dL (Negative) 11/08/22 23:33 Ur Leukocyte Esterase 1+ (Negative) H 11/08/22 23:33 Urine RBC None /hpf (0-2) 11/08/22 23:33 Urine WBC 5-10 /hpf (0-5) H 11/08/22 23:33 Ur Squamous Epith Cells None /hpf (0-5) 11/08/22 23:33 Ur Transition Epith Cell 0-4 /hpf 11/08/22 23:33 Amorphous Sediment 1+ /hpf 11/08/22 23:33 Urine Bacteria 1+ /hpf (NONE) H 11/08/22 23:33 Hyaline Casts 0-4 /lpf H 11/08/22 23:33 Urine Mucus 2+ /hpf 11/08/22 23:33 A&P Assessment and plan (1) Fever: Patient presenting to the hospital with 3 days of increasing generalized malaise fatigue, reported confusion by family. Initially noted to have new hypoxia on ER arrival and sinus tachycardia to 130 bpm Subsequently spiked a fever to 101 Fahrenheit Possible sources of infection or UTI given that he reports dysuria, increased straining at micturition over the last 2 to 3 days. Has a past history of recurrent urinary tract infections. Followed by urology for a history of TCCA of the bladder status post BCG in 2017 and also for BPH with increasing PSA recently. Both of these conditions may predispose him to having a UTI. UA currently shows 1+ leukocyte Estrace, 5-10 WBCs and 1+ bacteria. Awaiting urine culture which has now been ordered. Blood cultures not drawn thus far, ordered now Start piperacillin/tazobactam for empiric treatment while awaiting urine and blood cultures. Antibiotics have been started after collecting cultures. Check lactate. Patient also reports a recent history of tick bites, [place] [facility]. Start doxycycline 100 mg p.o. twice daily empirically while awaiting tick panel. Antibiotic treatment to be adjusted based on results of above testing and clinical course. (2) Acute kidney injury: Acute kidney injury with creatinine at 2.5. Previous baseline at 1.1. JENNYFER may be related to dehydration versus bladder outlet obstruction. CT KUB without signs of hydronephrosis or other obstructing lesions. Recommended Hogue catheterization, however patient would like to wait on this. We will check bladder scan every 6 hours and if signs of racquel urinary retention patient is agreeable to proceed with Hogue catheterization to bypass any potential outlet obstruction Start IV fluids normal saline at 75 cc an hour. Patient appears to be clinically dehydrated with dry parched and coated mucous membranes and tongue. CPK normal at 56, less likely rhabdomyolysis. Monitor closely all KAREEN's, urine output to be strictly charted. Patient has been instructed to urinate in a urinal to allow us to measure his strict urine output. Hold home dose of lisinopril and hydrochlorothiazide (3) Hypoxia: New hypoxia with oxygen requirement of 2 L/min. ABG 7.43/37.2/72.5/24.8 on room air. Denies any past history of COPD. CT of the chest today shows no evidence of pneumonia. Chronic appearing subpleural interstitial opacities which appear to be chronic, of unclear significance. May have chronic granulomatous disease given also evidence of splenic granulomas and Left hilar calcified lymph nodes. No clinical signs of CHF Patient is not a current smoker, quit smoking in 1990 CTA of the chest to evaluate for PE was not performed given his acute kidney injury and further risk of GERI. D-dimer is currently negative, low probability of PE. No complaints of chest pain dyspnea or palpitations. Troponin series 16 --> 17---> 19, low probability of ACS (4) Confusion: Currently patient is awake alert and oriented x3. May have a component of metabolic encephalopathy from underlying infection, hypoxia and dehydration. Management as above Patient is currently alert awake alert oriented x3 at the time of my assessment. (5) Diabetes type 2, uncontrolled: Insulin sliding scale while in the hospital (6) Dehydration: -Fluid normal saline at 75 cc an hour Plan Continue home doses of fenofibrate and statins. Continue metoprolol 100mg po BID Attestations Medical Necessity Statement*: Greater than 2 midnight admission is anticipated for evaluation of fever, new hypoxia, JENNYFER, likely metabolic encephalopathy, need for IV fluids and IV antibiotics Coding Level of Care Code Acute Code for [facility] Diagnoses Fever R50.9 Acute kidney injury N17.9 Hypoxia R09.02 Confusion R41.0 Diabetes type 2, uncontrolled E11.65 Dehydration E86.0
[2022-11-09] MEDS: D5-NS 0.45% + KCL 20 mEq 20 MEQ/1,000 ML BAG 75 MEQ IV (01:41)
[2022-11-09] MEDS: enoxaparin 40 mg/0.4 mL Syringe SUBCUT (01:46)
--- NOTE | 2022-11-09 03:18 | ECG_ITS ---
[facility] Test Date: 2022-11-09 Pat Name: Yifan Gamino Department: Room: 258 Gender: Male Insurance Legal Assistant: : [id number] Requested By: Alisson Alvarez Order Number: [id number] Danie MD: Dale Giron M.D. Measurements Intervals [place] Rate: 122 P: 53 ND: 188 QRS: 29 QRSD: 86 T: 53 QT: 318 QTc: 453 Interpretive Statements SINUS TACHYCARDIA ABNORMAL RHYTHM ECG Compared to ECG 11/08/2022 23:24:03 No significant changes Electronically Signed On 11-09-2022 14:53:22 CDT by Dale Giron M.D. [id number]
[2022-11-09 04:02] LABS: Troponin 5 6HR 19.87 ng/L (0-15)
[2022-11-09 04:04] LABS: Lactic Sepsis W/Reflex 1.2 mmol/L (0.5-2.2)
[2022-11-09 04:12] LABS: Troponin 5 6HR Delta 2.87 ng/L (0-12)
[2022-11-09 05:11] LABS: Procalcitonin 0.22 ng/mL (0-0.5); Thyroid Stimulating Hormone 0.61 uIU/mL (0.27-4.20)
[2022-11-09 07:03] LABS: Glucose Point of Care 217 mg/dL (70-110)
--- NOTE | 2022-11-09 08:06 | PC.PHAR ---
[facility]XED [facility] AT 8:00 AM FOR MED LIST
[2022-11-09] MEDS: piperacillin-tazobactam 3.375 GM in sodium chloride 0.9% (plus) 50 ML IV ×3 (08:34→22:56)
[2022-11-09] MEDS: metoprolol tartrate 50 mg Tablet 100 MG PO ×2 (08:35→17:24)
[2022-11-09] MEDS: doxycycline 100 mg Tablet PO ×2 (08:35→17:24)
[2022-11-09] MEDS: tamsulosin 0.4 mg Capsule PO ×2 (08:35→17:24)
[2022-11-09] MEDS: insulin lispro 100 unit/1 mL SUBCUT ×4 (08:35→21:28)
[2022-11-09] MEDS: pantoprazole DR 40 mg Tablet PO (08:36)
[2022-11-09] MEDS: atorvastatin 40 mg Tablet 20 MG PO (08:36)
[2022-11-09] MEDS: aspirin 81 mg EC Tablet PO (08:36)
[2022-11-09] MEDS: fenofibrate 48 mg Tablet PO (08:41)
[2022-11-09] MEDS: sodium chloride 0.9% 1,000 ML 75 ML IV ×2 (08:42→22:13)
[2022-11-09 11:17] LABS: Basophils % 0.4 %; Eosinophils % 0.1 %; Hematocrit 38.9 % (42.0-52.0); Lymphocytes # 1.6 10^3/uL (0.8-4.8); Lymphocytes % 22.5 %; Mean Corpuscular HGB Conc 33.4 g/dL (30.0-36.0); Mean Corpuscular Hemoglobin 30.4 pg (28.0-34.0); Mean Corpuscular Volume 91.1 fl (80-94); Mean Platelet Volume 10.5 fL (7.4-10.4); Monocytes # 0.8 10^3/uL (0.2-0.9); Monocytes % 11.2 %; Neutrophils # 4.62 10^3/uL (1.8-7.7); Neutrophils % 65.4 %; Nucleated Red Blood Cells % 0 %; Platelet Count 156 10^3/cmm (130-400); Red Blood Count 4.27 10^6/uL (4.1-5.3); Red Cell Distribution Width 13.3 % (12.1-15.1); White Blood Count 7.1 10^3/uL (4.0-10.0)
[2022-11-09 11:26] LABS: Glucose Point of Care 210 mg/dL (70-110)
[2022-11-09] MEDS: insulin glargine 100 units/1 mL 15 UNIT SUBCUT (11:41)
[2022-11-09 11:57] LABS: Thyroid Stimulating Hormone 0.57 uIU/mL (0.27-4.20)
[2022-11-09 12:05] LABS: Procalcitonin 0.23 ng/mL (0-0.5); Vitamin B12 387 pg/mL (232-1245)
[2022-11-09 12:18] LABS: Alanine Aminotransferase 35 U/L (0-41); Albumin Level 4.4 g/dL (3.5-5.2); Alkaline Phosphatase 50 U/L (40-130); Anion Gap 20.9 (5-19); Aspartate Amino Transferase 38 U/L (0-40); Blood Urea Nitrogen 35 mg/dL (8-23); Calcium 9.2 mg/dL (8.5-10.5); Carbon Dioxide 21 mmol/L (22-29); Chloride 97 mmol/L (98-107); Globulin 2.3 g/dL (1.3-4.6); Glucose 181 mg/dL (65-115); Iron 22 ug/dL (59-158); Osmolality Calculated 293 mOsm/kg (285-295); Percent Saturation 7.5 % (20-50); Potassium 3.9 mmol/L (3.5-5.1); Sodium 135 mmol/L (136-145); Total Bilirubin 0.5 mg/dL (0.15-1.2); Total Iron Binding Capacity 290 mcg/dl; Total Protein 6.7 g/dL (6.6-8.7); Unsaturated Iron Binding 268 ug/dL (112-347)
[2022-11-09 13:55] LABS: Adenovirus Not Detected (NOT DETECT); Chlamydia Pneumoniae Not Detected (NOT DETECT); Coronavirus 229E,HKU1,NL63,OC4 Not Detected (NOT DETECT); Human Metapneumovirus Not Detected (NOT DETECT); Human Rhinovirus/Enterovirus Not Detected (NOT DETECT); Influenza A Not Detected (NOT DETECT); Influenza A H1 Not Detected (NOT DETECT); Influenza A H1-2009 Not Detected (NOT DETECT); Influenza A H3 Not Detected (NOT DETECT); Influenza B Not Detected (NOT DETECT); Mycoplasma Pneumoniae Not Detected (NOT DETECT); Parainfluenza Virus Type 1 Not Detected (NOT DETECT); Parainfluenza Virus Type 2 Not Detected (NOT DETECT); Parainfluenza Virus Type 3 Not Detected (NOT DETECT); Parainfluenza Virus Type 4 Not Detected (NOT DETECT); Respiratory Syncytial Virus A Not Detected (NOT DETECT); Respiratory Syncytial Virus B Not Detected (NOT DETECT)
[2022-11-09 13:59] LABS: SARS-COV-2 Detected (NOT DETECT)
[2022-11-09] MEDS: dexamethasone 10 mg/mL INJ 6 MG IVP (16:19)
[2022-11-09 16:48] LABS: Glucose Point of Care 227 mg/dL (70-110)
[2022-11-09 20:35] LABS: Glucose Point of Care 258 mg/dL (70-110)
[2022-11-09] MEDS: benzonatate 100 mg Capsule 200 MG PO (21:27)
[2022-11-10] VITALS (11 sets, daily range): BP systolic 125–154; BP diastolic 69–72; PULSE 80–92; RESP 14–19; TEMP 36.7–36.9; O2SAT 93–97
[2022-11-10] MEDS: enoxaparin 40 mg/0.4 mL Syringe SUBCUT (01:01)
[2022-11-10 06:21] LABS: Basophils % 0.3 %; Eosinophils # 0.1 10^3/uL (0.0-0.8); Eosinophils % 2.1 %; Hematocrit 37.8 % (42.0-52.0); Hemoglobin 12.9 g/dL (11.7-16.6); Lymphocytes # 1.5 10^3/uL (0.8-4.8); Lymphocytes % 22.4 %; Mean Corpuscular HGB Conc 34.1 g/dL (30.0-36.0); Mean Corpuscular Hemoglobin 30.9 pg (28.0-34.0); Mean Corpuscular Volume 90.6 fl (80-94); Mean Platelet Volume 9.7 fL (7.4-10.4); Monocytes # 0.6 10^3/uL (0.2-0.9); Monocytes % 8.9 %; Neutrophils # 4.43 10^3/uL (1.8-7.7); Neutrophils % 65.9 %; Nucleated Red Blood Cells % 0 %; Platelet Count 164 10^3/cmm (130-400); Red Blood Count 4.17 10^6/uL (4.1-5.3); Red Cell Distribution Width 12.8 % (12.1-15.1); White Blood Count 6.7 10^3/uL (4.0-10.0)
[2022-11-10 06:35] LABS: Glucose Point of Care 199 mg/dL (70-110)
[2022-11-10 06:37] LABS: Estmated Average Glucose 226; Hemoglobin A1C 9.5 % (4.0-6.0)
[2022-11-10 06:44] LABS: Chol HDL Ratio 4.12 mg/dL (1.0-5.00); Cholesterol 136 mg/dL (0-200); HDL Cholesterol 33 mg/dL (60-100); LDL Cholesterol Calculated 80 mg/dL (50-129); Triglycerides 117 mg/dL (0-150); VLDL Cholestrol Calculation 23 mg/dL (0-30)
[2022-11-10 06:45] LABS: Alanine Aminotransferase 55 U/L (0-41); Albumin Level 3.9 g/dL (3.5-5.2); Alkaline Phosphatase 46 U/L (40-130); Anion Gap 15.4 (5-19); Aspartate Amino Transferase 56 U/L (0-40); Blood Urea Nitrogen 30 mg/dL (8-23); Calcium 9.4 mg/dL (8.5-10.5); Carbon Dioxide 24 mmol/L (22-29); Chloride 100 mmol/L (98-107); Glucose 202 mg/dL (65-115); Osmolality Calculated 292 mOsm/kg (285-295); Potassium 4.4 mmol/L (3.5-5.1); Sodium 135 mmol/L (136-145); Total Bilirubin 0.5 mg/dL (0.15-1.2); Total Protein 6.9 g/dL (6.6-8.7)
[2022-11-10 06:49] LABS: Creatinine Clr Calc Pharmacy 49.2871
[2022-11-10 06:59] LABS: Folate Level 11.7 ng/mL (4.5-32.2)
[2022-11-10] MEDS: piperacillin-tazobactam 3.375 GM in sodium chloride 0.9% (plus) 50 ML IV ×3 (08:24→23:26)
[2022-11-10] MEDS: insulin glargine 100 units/1 mL 15 UNIT SUBCUT (08:28)
[2022-11-10] MEDS: aspirin 81 mg EC Tablet PO (08:29)
[2022-11-10] MEDS: metoprolol tartrate 50 mg Tablet 100 MG PO ×2 (08:29→17:04)
[2022-11-10] MEDS: tamsulosin 0.4 mg Capsule PO ×2 (08:29→17:04)
[2022-11-10] MEDS: pantoprazole DR 40 mg Tablet PO (08:29)
[2022-11-10] MEDS: benzonatate 100 mg Capsule 200 MG PO ×3 (08:34→21:36)
[2022-11-10] MEDS: insulin lispro 100 unit/1 mL SUBCUT ×4 (08:43→21:36)
[2022-11-10] MEDS: atorvastatin 40 mg Tablet 20 MG PO (08:44)
[2022-11-10] MEDS: doxycycline 100 mg Tablet PO ×2 (08:45→17:04)
[2022-11-10] MEDS: fenofibrate 48 mg Tablet PO (08:47)
[2022-11-10 11:27] LABS: Glucose Point of Care 274 mg/dL (70-110)
[2022-11-10] MEDS: sodium chloride 0.9% 1,000 ML 75 ML IV (12:12)
[2022-11-10] MEDS: amlodipine 5 mg Tablet PO (12:12)
--- NOTE | 2022-11-10 13:32 | P.PN_ITS ---
Subjective Subjective: No acute events overnight. Patient states he is feeling a lot better. Today morning awake and alert sitting up in chair. Denies any nausea, vomiting, headache. Document urine output of 1 2.4 L in last 24 hours. Blood work shows improvement in creatinine down to 1.5, BUN down to 30, sodium stable at 135, resolution of metabolic acidosis, stable CBC. Respiratory viral panel positive for COVID-19 Vitals/I&O/Wt Last Vital Signs Temp 98.1 F 11/10/22 12:00 Pulse 87 11/10/22 12:00 Resp 18 11/10/22 12:00 BP 126/70 11/10/22 12:00 Pulse Ox 97 11/10/22 12:00 O2 Del Method Nasal Cannula 11/10/22 12:00 O2 Flow Rate 2 11/10/22 09:31 11/09/22 11/10/22 11/10/22 22:59 06:59 14:59 Intake Total 1530 / 3180 50 / 3230 1360 / 1360 Output Total 1200 / 1500 1250 / 2750 Balance 330 / 1680 -1200 / 480 1360 / 1360 Weight last 48 hrs Weight 98.43 kg Physical Exam Narrative: EXAM NARRATIVE: General: No acute distress, AO x3, NC oxygen supplementation HEENT: PERRLA, pupils bilaterally equal and reactive Chest:Bronchial breath sounds b/l ,decreased air entry, equal good air entry bilaterally, no more fine basal crackles CVS: S1-S2 regular, no murmurs, no tachycardia, no gallops, no rubs Abdomen: Soft, nontender, no organomegaly, bowel sounds present, morbidly obese Neuro: No focal deficits, no facial deformity, AO x3, power 5/5 in all limbs Urinary Catheter Management: Hogue: Cath Placed During This Visit: yes Reason for Continuing Indwelling Catheter: Acute Urinary Retention or Obstruction Urinary Catheter Date of Insertion: 11/09/22 Urinary Catheter Time of Insertion: 10:05 Data 11/10/22 05:50 11/10/22 05:50 Micro: Microbiology 11/08/22 23:33 Urine Culture - Preliminary Urine,Clean Catch 11/09/22 03:32 Blood Culture - Preliminary Blood NEGATIVE TO DATE 11/09/22 03:32 Blood Culture - Preliminary Blood NEGATIVE TO DATE A&P Assessment and plan (1) Fever: Most likely in setting of UTI/prostatitis along with COVID-19. UA on admission concerning for UTI. Patient does have a history of bladder cancer. Tick panel awaited. [place] Continue with empiric doxycycline 100 mg twice daily, Zosyn. MRSA swab awaited. If gets hemodynamically unstable would add vancomycin. Follow-up blood cultures and urine culture. (2) Acute kidney injury: Baseline creatinine 1.1. Most likely in setting of dehydration, sepsis on admission along with bladder outlet obstruction secondary to prostatomegaly. Hogue in place. Creatinine improving to 1.5. Continue gentle hydration at 75 cc/h. Continue Flomax 0.4 mg twice daily. Medical reconciliation done for nephrotoxic drugs. Hold off on home dose of lisinopril. Monitor BMP daily. (3) COVID-19: Mild disease. Dexamethasone 6-minute IV daily for next 10 days. Incentive spirometry. DuoNebs every 6 hour, budesonide twice daily. (4) Hypoxia: New hypoxia with oxygen requirement of 2 L/min. Most likely in setting of COVID-19 along with sepsis from UTI. CT chest negative for pneumonia though shows possibility of chronic granulomatous disease. Cannot rule out underlying sarcoidosis. Check ERIN levels. Incentive spirometry. DuoNebs every 6 hours, budesonide twice daily. Wean oxygen keeping saturation over 90%. No concerns for congestive heart failure. Check echocardiogram. Patient does have history of hypertension. (5) Confusion: Resolved. Currently patient is awake alert and oriented x3. May have a component of metabolic encephalopathy from underlying infection, hypoxia and dehydration. (6) Diabetes type 2, uncontrolled: A1c 9.5. Continue insulin sliding scale along with home dose of Lantus 15 units daily. (7) Dehydration: Resolved. Plan Hypertension: Goal of pressure less than 140/90 mmHg. Continue with home dose of metoprolol 100 mg twice daily. Add metoprolol 5 mg daily. Holding off on home dose of lisinopril given JENNYFER. Full code. Carb consistent diet. Protonix for PUD prophylaxis Lovenox for DVT prophylaxis Discharge plan: Plan to discharge home with caregiver once medically stable most likely within next 48 to 72 hours. Attestations Medical Necessity Statement*: Requires further hospitalization for management of sepsis in setting of UTI, JENNYFER, COVID-19 leading to hypoxia Diagnoses Fever R50.9 Acute kidney injury N17.9 COVID-19 U07.1 Hypoxia R09.02 Confusion R41.0 Diabetes type 2, uncontrolled E11.65 Dehydration E86.0
--- NOTE | 2022-11-10 13:44 | USCV_ITS ---
Yifan Gamino Age: 77 Gender: M : 1945 Exam Date: 11/10/2022 16:17 Ordering Phys: Kal Rodriguez MD Technologist: NICHELLE [place] [facility] [place]: [place] BP: / HR: 90 Rhythm: Sinus Technical Quality: Adequate MEASUREMENTS (Male / Female) Normal Values 2D ECHO LV Diastolic Diameter PLAX 6.4 cm 4.2 - 5.9 / 3.9 - 5.3 cm LV Systolic Diameter PLAX 5.4 cm IVS Diastolic Thickness 0.6 cm 0.6 - 1.0 / 0.6 - 0.9 cm IVS Systolic Thickness 0.8 cm LVPW Diastolic Thickness 0.7 cm 0.6 - 1.0 / 0.6 - 0.9 cm LVPW Systolic Thickness 0.9 cm LVOT Diameter 2.3 cm LV Ejection Fraction 2D Teich 33.9 % LV Ejection Fraction MOD 2C 51.1 % LV Ejection Fraction 2C AL 51.2 % LA Diameter 4.1 cm IVC Diameter 1.8 cm M-MODE Aortic Annulus Diameter 3.2 cm LA Ao Ratio MM 1.5 MV E Point Septal Separation 1.0 cm DOPPLER AV Peak Velocity 115.0 cm/s LVOT Peak Velocity 102.0 cm/s AV Area Cont Eq vti 3.4 cm squared AV Area Cont Eq pk 3.7 cm squared MV Area PHT 3.9 cm squared Mitral E to A Ratio 1.0 MV E' Velocity 75.5 cm/s Mitral E to MV E' Ratio 20.7 Mitral E to LV E' Lateral Ratio 18.8 Mitral E to LV E' Septal Ratio 23.0 TV Peak E Velocity 52.0 cm/s FINDINGS Left Ventricle Normal left ventricular size and systolic function, EF 55 %. No regional wall motion abnormalities. Grade I/IV diastolic dysfunction (abnormal relaxation filling pattern), normal to mildly elevated filling pressures. Right Ventricle The right ventricle is normal in size and function. Right Atrium A partially mobile echodensity in the right atrium, most likely are present in the prominent eustachian valve Left Atrium The left atrium is normal in size. Mitral Valve Thickened mitral valve. Moderate mitral valve regurgitation. Aortic Valve Thickened aortic valve. Tricuspid Valve Trace of tricuspid regurgitation Pulmonic Valve No gross abnormalities noted Pericardium Normal pericardium without effusion. Aorta Normal ascending aorta dimension. IVC The inferior vena cava appears normal. CONCLUSIONS Normal left ventricular size and systolic function, EF 55 %. No regional wall motion abnormalities. Grade I/IV diastolic dysfunction (abnormal relaxation filling pattern), normal to mildly elevated filling pressures. A partially mobile echodensity in the right atrium, most likely are present in the prominent eustachian valve. Normal cardiac chamber sizes. Trace of tricuspid regurgitation The PA pressure could not be correlated because of the poor Doppler signals. There is no pericardial effusion. There are no intracardiac masses. No similar previous studies are available for comparison Dr Cj Valencia MD FACC (Electronically Signed) Final Date: 10 November 2022 18:30 S
[2022-11-10] MEDS: ipratropium-albuterol 3 mL Neb INHALATION ×2 (14:14→20:49)
[2022-11-10 15:05] LABS: Lyme AB Screen <0.90 index
[2022-11-10] MEDS: dexamethasone 10 mg/mL INJ 6 MG IVP (15:40)
[2022-11-10 16:49] LABS: Glucose Point of Care 207 mg/dL (70-110)
[2022-11-10] MEDS: budesonide 0.5 mg/2 mL Neb INHALATION (20:49)
[2022-11-10 21:19] LABS: Glucose Point of Care 263 mg/dL (70-110)
[2022-11-11] VITALS (8 sets, daily range): BP systolic 148–159; BP diastolic 78–81; PULSE 84–98; RESP 16–19; TEMP 36.6–36.9; O2SAT 91–98
[2022-11-11] MEDS: enoxaparin 40 mg/0.4 mL Syringe SUBCUT (01:51)
[2022-11-11] MEDS: sodium chloride 0.9% 1,000 ML 75 ML IV (01:51)
[2022-11-11] MEDS: ipratropium-albuterol 3 mL Neb INHALATION ×2 (03:29→08:39)
[2022-11-11 03:43] LABS: Basophils % 0.2 %; Hematocrit 37.5 % (42.0-52.0); Hemoglobin 12.9 g/dL (11.7-16.6); Lymphocytes # 1.6 10^3/uL (0.8-4.8); Lymphocytes % 19.7 %; Mean Corpuscular HGB Conc 34.4 g/dL (30.0-36.0); Mean Corpuscular Hemoglobin 30.9 pg (28.0-34.0); Mean Corpuscular Volume 89.9 fl (80-94); Monocytes # 0.7 10^3/uL (0.2-0.9); Monocytes % 8.4 %; Neutrophils # 5.88 10^3/uL (1.8-7.7); Neutrophils % 71.3 %; Nucleated Red Blood Cells % 0 %; Platelet Count 149 10^3/cmm (130-400); Red Blood Count 4.17 10^6/uL (4.1-5.3); Red Cell Distribution Width 12.6 % (12.1-15.1); White Blood Count 8.2 10^3/uL (4.0-10.0)
[2022-11-11 03:59] LABS: Alanine Aminotransferase 45 U/L (0-41); Albumin Level 3.8 g/dL (3.5-5.2); Alkaline Phosphatase 44 U/L (40-130); Anion Gap 14.2 (5-19); Aspartate Amino Transferase 38 U/L (0-40); Blood Urea Nitrogen 24 mg/dL (8-23); Calcium 9.1 mg/dL (8.5-10.5); Carbon Dioxide 23 mmol/L (22-29); Chloride 104 mmol/L (98-107); Globulin 2.7 g/dL (1.3-4.6); Glucose 173 mg/dL (65-115); Osmolality Calculated 292 mOsm/kg (285-295); Potassium 4.2 mmol/L (3.5-5.1); Sodium 137 mmol/L (136-145); Total Bilirubin 0.4 mg/dL (0.15-1.2); Total Protein 6.5 g/dL (6.6-8.7)
[2022-11-11 06:42] LABS: Glucose Point of Care 212 mg/dL (70-110)
[2022-11-11] MEDS: piperacillin-tazobactam 3.375 GM in sodium chloride 0.9% (plus) 50 ML IV (08:27)
[2022-11-11] MEDS: doxycycline 100 mg Tablet PO (08:28)
[2022-11-11] MEDS: insulin lispro 100 unit/1 mL SUBCUT ×2 (08:28→12:29)
[2022-11-11] MEDS: atorvastatin 40 mg Tablet 20 MG PO (08:29)
[2022-11-11] MEDS: tamsulosin 0.4 mg Capsule PO (08:29)
[2022-11-11] MEDS: pantoprazole DR 40 mg Tablet PO (08:29)
[2022-11-11] MEDS: benzonatate 100 mg Capsule 200 MG PO (08:29)
[2022-11-11] MEDS: metoprolol tartrate 50 mg Tablet 100 MG PO (08:29)
[2022-11-11] MEDS: aspirin 81 mg EC Tablet PO (08:29)
[2022-11-11] MEDS: amlodipine 5 mg Tablet PO (08:29)
[2022-11-11] MEDS: insulin glargine 100 units/1 mL 15 UNIT SUBCUT (08:35)
[2022-11-11] MEDS: budesonide 0.5 mg/2 mL Neb INHALATION (08:39)
[2022-11-11] MEDS: fenofibrate 48 mg Tablet PO (08:41)
[2022-11-11 10:51] LABS: Glucose Point of Care 228 mg/dL (70-110)
--- NOTE | 2022-11-11 13:12 | P.DS_ITS ---
Discharge Providers Date of Admission: 11/09/22 00:04 Date of Discharge: November 11, 2022 Attending Provider at Admission: Juanis Trevizo MD Attending Provider at Discharge: Gonzalo Mello MD Consults: None Primary Care Provider: Man Horta DO Diagnoses at Discharge Discharge Diagnosis (1) Fever: Status: Resolved (2) Acute kidney injury: Status: Resolved (3) COVID-19: Status: Acute (4) Hypoxia: Status: Resolved (5) Confusion: Status: Resolved (6) Diabetes type 2, uncontrolled: Status: Acute (7) Dehydration: Status: Resolved Reason for Visit Reason for Visit: sob low o2 Hospital Course Hospital Course Yifan Gamino is a 77-year-old male with a past medical history significant for bladder cancer, benign prostatic hypertrophy with bladder outlet obstruction, type 2 diabetes mellitus, hypertension, and hyperlipidemia who presents to the emergency department with generalized weakness and intermittent confusion, found to have COVID-19 infection with acute hypoxia, acute kidney injury, and acute metabolic encephalopathy. He was treated with IV fluids and supportive care. Symptoms improved. Hypoxia resolved. Patient discharged to home in stable condition. He is to follow up with PCP for further care. Physical Exam Const: COMMON NORMALS: no acute distress and alert HENMT: COMMON NORMALS: normocephalic and atraumatic HEAD & SCALP: normocephalic and atraumatic Eye: COMMON NORMALS: EOMs intact bilaterally Neck/C-Spine: COMMON NORMALS: no JVD Chest: CHEST: Yes Symmetrical chest wall rise Resp: COMMON NORMALS: normal respiratory effort, No retractions and No use of accessory muscles Cardio: COMMON NORMALS: no JVD, S1 normal heart sound present and S2 normal heart sound present HEART SOUNDS: S1 normal heart sound present and S2 normal heart sound present GI: COMMON NORMALS: Normal to inspection, nondistended, normoactive bowel sounds present and non-tender Extremity: COMMON NORMALS: normal to inspection and no clubbing, cyanosis or edema Neuro: SENSORIUM/ORIENTATION: Yes alert Psych: COMMON NORMALS: mental status grossly normal Skin: COMMON NORMALS: no rashes or lesions noted and no jaundice GENERAL SKIN EXAM: no rashes or lesions noted Urinary Catheter Management: [place]: Cath Placed During This Visit: yes Reason for Continuing Indwelling Catheter: Acute Urinary Retention or Obstruction Urinary Catheter Date of Insertion: 11/09/22 Urinary Catheter Time of Insertion: 10:05 Discharge Data Studies Completed and Pending Completed Studies During Hospitalization Category Date Time Status CT abdomen renal stone [CT kidney stone [id number]] Routine Cat Scan 11/09/22 01:[address] chest wo con [id number] Stat Cat Scan 11/08/22 21:[address] head wo con* [id number] Stat Cat Scan 11/08/22 21:53 Completed XR chest 1V portable [id number] Stat Exams 11/08/22 21:10 Completed CV. echo complete* [id number] Routine Ultrasound 11/10/22 13:44 Completed Pending at discharge Category Date Time Status Angiotensin Converting Enzyme Routine Lab 11/10/22 05:50 Received Blood Culture Routine Lab 11/09/22 03:32 Results Tick Panel Routine Lab 11/09/22 03:32 Results Urine Culture Stat Lab 11/09/22 07:36 Results Radiology Impressions Chest X-Ray 11/08/22 21:10 IMPRESSION: Hyperinflated but clear lungs. No other acute cardiopulmonary abnormality. Chest CT 11/08/22 21:53 IMPRESSION: 1. No evidence of pneumonia. Minimal subpleural interstitial opacities in the lung bases are favored to be chronic. Correlate with history. 2. There is a 4 mm solid right lower lobe nodule abutting the fissure most likely an intrapulmonary lymph node. For patients at low risk (minimal or absent history of smoking and of other known risk factors), no routine follow-up is indicated. For patients at high risk (history of smoking or of other known risk factors), consider optional CT Chest at 12 months. (Reference: Jhonny) REFERENCES: Vinhokevin H, et al. Guidelines for Management of Incidental Pulmonary Nodules Detected on CT Images: From the Fleischner Society 2017. Radiology. 2017;284(1):228-243. Head CT 11/08/22 21:53 IMPRESSION: No evidence of acute intracranial hemorrhage, mass effect, or edema. Abdomen/Pelvis CT 11/09/22 01:01 IMPRESSION: 1. Kidneys are symmetric without evidence obstruction. 2. Moderate diffuse arterial calcification. There is moderate luminal narrowing at the origin of each renal artery. Approximately 50% narrowing at the origin of the superior mesenteric artery. 3. Enlarged prostate indents the base of the urinary bladder. Laboratory Results WBC 8.2 10^3/uL (4.0-10.0) 11/11/22 03:15 RBC 4.17 10^6/uL (4.1-5.3) 11/11/22 03:15 Hgb 12.9 g/dL (11.7-16.6) 11/11/22 03:15 Hct 37.5 % (42.0-52.0) L 11/11/22 03:15 MCV 89.9 fl (80-94) 11/11/22 03:15 MCH 30.9 pg (28.0-34.0) 11/11/22 03:15 MCHC 34.4 g/dL (30.0-36.0) 11/11/22 03:15 RDW 12.6 % (12.1-15.1) 11/11/22 03:15 Plt Count 149 10^3/cmm (130-400) 11/11/22 03:15 MPV 10.0 fL (7.4-10.4) 11/11/22 03:15 Neut % (Auto) 71.3 % 11/11/22 03:15 Lymph % (Auto) 19.7 % 11/11/22 03:15 [place] % (Auto) 8.4 % 11/11/22 03:15 Eos % (Auto) 0.0 % 11/11/22 03:15 Baso % (Auto) 0.2 % 11/11/22 03:15 Neut # (Auto) 5.88 10^3/uL (1.8-7.7) 11/11/22 03:15 Lymph # (Auto) 1.6 10^3/uL (0.8-4.8) 11/11/22 03:15 [place] # (Auto) 0.7 10^3/uL (0.2-0.9) 11/11/22 03:15 Eos # (Auto) 0.0 10^3/uL (0.0-0.8) 11/11/22 03:15 Baso # (Auto) 0.0 10^3/uL (0.0-0.1) 11/11/22 03:15 Nucleated RBC % (auto) 0 % 11/11/22 03:15 Nucleated RBCs # 0.0 /100WBC 11/11/22 03:15 PT 14.90 SECONDS (12.1-14.9) 11/08/22 21:30 INR 1.13 (0.8-1.2) 11/08/22 21:30 D-Dimer 0.28 ug/mIFEU (0-0.59) 11/08/22 21:30 Specimen Type Arterial 11/08/22 22:12 Sample Site Radial, right 11/08/22 22:12 ABG pH 7.43 (7.35-7.45) 11/08/22 22:12 ABG pCO2 37.2 mmHg (35-45) 11/08/22 22:12 ABG pO2 72.5 mmHg (80.0-100.0) L 11/08/22 22:12 ABG HCO3 24.8 mmol/L (22-26) 11/08/22 22:12 ABG Base Excess 0.7 mmol/L (-2.0-2.0) 11/08/22 22:12 [place] Test Pos 11/08/22 22:12 Hematocrit 43.1 % (42-52) 11/08/22 22:12 O2 Delivery Device Nc 11/08/22 22:12 O2 Liters/Min 2.0 % 11/08/22 22:12 FiO2 28.0 % 11/08/22 22:12 Fitter Type Bar And Segment ID [place] 11/08/22 22:12 Sodium 137 mmol/L (136-145) 11/11/22 03:15 Potassium 4.2 mmol/L (3.5-5.1) 11/11/22 03:15 Chloride 104 mmol/L (98-107) 11/11/22 03:15 Carbon Dioxide 23 mmol/L (22-29) 11/11/22 03:15 Anion Gap 14.2 (5-19) 11/11/22 03:15 BUN 24 mg/dL (8-23) H 11/11/22 03:15 Creatinine 1.3 mg/dL (0.7-1.2) H 11/11/22 03:15 GFR Calculation Not Reportable 11/11/22 03:15 Glucose 173 mg/dL (65-115) H 11/11/22 03:15 POC Glucose 228 mg/dL (70-110) H 11/11/22 10:43 Estimat Average Glucose 226 11/10/22 05:50 Hemoglobin A1c 9.5 % (4.0-6.0) H 11/10/22 05:50 Calculated Osmolality 292 mOsm/kg (285-295) 11/11/22 03:15 Lactic Acid 1.2 mmol/L (0.5-2.2) 11/09/22 03:32 Calcium 9.1 mg/dL (8.5-10.5) 11/11/22 03:15 Iron 22 ug/dL (59-158) L 11/09/22 03:32 TIBC 290 mcg/dl 11/09/22 03:32 % Saturation 7.5 % (20-50) L 11/09/22 03:32 Unsat Iron Binding 268 ug/dL (112-347) 11/09/22 03:32 Total Bilirubin 0.4 mg/dL (0.15-1.2) 11/11/22 03:15 AST 38 U/L (0-40) 11/11/22 03:15 ALT 45 U/L (0-41) H 11/11/22 03:15 Alkaline Phosphatase 44 U/L (40-130) 11/11/22 03:15 Creatine Kinase 56 U/L (39-308) 11/08/22 23:35 Troponin T Baseline 17 ng/L (0-15) H 11/08/22 21:30 Troponin T 120 Minute 16.47 ng/L (0-15) H 11/08/22 23:35 Delta Troponin T -0.53 ABS# (0-10) L 11/08/22 23:35 Troponin T Hi Sens 6Hr 19.87 ng/L (0-15) H 11/09/22 03:32 Troponin T Hi Sens 6Hr Delta 2.87 ng/L (0-12) 11/09/22 03:32 NT-Pro-B Natriuret Pep 244 pg/mL (0-450) 11/08/22 21:30 Total Protein 6.5 g/dL (6.6-8.7) L 11/11/22 03:15 Albumin 3.8 g/dL (3.5-5.2) 11/11/22 03:15 Globulin 2.7 g/dL (1.3-4.6) 11/11/22 03:15 Triglycerides 117 mg/dL (0-150) 11/10/22 05:50 Cholesterol 136 mg/dL (0-200) 11/10/22 05:50 LDL Cholesterol, Calc 80 mg/dL (50-129) 11/10/22 05:50 Total VLDL Cholesterol 23 mg/dL (0-30) 11/10/22 05:50 HDL Cholesterol 33 mg/dL (60-100) L 11/10/22 05:50 Cholesterol/HDL Ratio 4.12 mg/dL (1.0-5.00) 11/10/22 05:50 Vitamin B12 387 pg/mL (232-1245) 11/09/22 03:32 Folate 11.7 ng/mL (4.5-32.2) 11/10/22 05:50 Procalcitonin 0.22 ng/mL (0-0.5) 11/09/22 03:32 Procalcitonin 0.23 ng/mL (0-0.5) 11/09/22 03:32 TSH 0.57 uIU/mL (0.27-4.20) 11/09/22 03:32 TSH 0.61 uIU/mL (0.27-4.20) 11/09/22 03:32 Urine Color Yellow (Yellow) 11/08/22 23:33 Urine Appearance Sl hazy (CLEAR) A 11/08/22 23:33 Urine pH 5 (5-7) 11/08/22 23:33 Ur Specific [place] 1.025 (1.005-1.030) 11/08/22 23:33 Urine Protein Trace (Negative) 11/08/22 23:33 Urine Glucose (UA) 2+ (Normal) H 11/08/22 23:33 Urine Ketones Negative (Negative) 11/08/22 23:33 Urine Blood Neg (Negative) 11/08/22 23:33 Urine Nitrate Negative (Negative) 11/08/22 23:33 Urine Bilirubin 1+ (Negative) H 11/08/22 23:33 Urine Urobilinogen Neg mg/dL (Negative) 11/08/22 23:33 Ur Leukocyte Esterase 1+ (Negative) H 11/08/22 23:33 Urine RBC None /hpf (0-2) 11/08/22 23:33 Urine WBC 5-10 /hpf (0-5) H 11/08/22 23:33 Ur Squamous Epith Cells None /hpf (0-5) 11/08/22 23:33 Ur Transition Epith Cell 0-4 /hpf 11/08/22 23:33 Amorphous Sediment 1+ /hpf 11/08/22 23:33 Urine Bacteria 1+ /hpf (NONE) H 11/08/22 23:33 Hyaline Casts 0-4 /lpf H 11/08/22 23:33 Urine Mucus 2+ /hpf 11/08/22 23:33 Nasal Influ A H1 2008 PCR Not detected (NOT DETECT) 11/09/22 09:40 Adenovirus (PCR) Not detected (NOT DETECT) 11/09/22 09:40 Lyme Ab (Western Blot) <0.90 index 11/09/22 03:32 C. pneumoniae DNA (PCR) Not detected (NOT DETECT) 11/09/22 09:40 Coronavirus 229E (PCR) Not detected (NOT DETECT) 11/09/22 09:40 Human Metapneumovir PCR Not detected (NOT DETECT) 11/09/22 09:40 Influenza A (H1) PCR Not detected (NOT DETECT) 11/09/22 09:40 Influenza A (H3) PCR Not detected (NOT DETECT) 11/09/22 09:40 Influenza Type A (PCR) Not detected (NOT DETECT) 11/09/22 09:40 Influenza Type B (PCR) Not detected (NOT DETECT) 11/09/22 09:40 M. pneumoniae (PCR) Not detected (NOT DETECT) 11/09/22 09:40 Parainfluenza 1 (PCR) Not detected (NOT DETECT) 11/09/22 09:40 Parainfluenza 2 (PCR) Not detected (NOT DETECT) 11/09/22 09:40 Parainfluenza 3 (PCR) Not detected (NOT DETECT) 11/09/22 09:40 Parainfluenza 4 (PCR) Not detected (NOT DETECT) 11/09/22 09:40 RSV Type A (PCR) Not detected (NOT DETECT) 11/09/22 09:40 RSV Type B (PCR) Not detected (NOT DETECT) 11/09/22 09:40 Entero/Rhino (PCR) Not detected (NOT DETECT) 11/09/22 09:40 SARS-CoV-2 (PCR) Detected (NOT DETECT) A 11/09/22 09:40 Vitals Last Vital Signs Temp 97.9 F 11/11/22 11:35 Pulse 96 11/11/22 11:35 Resp 18 11/11/22 11:35 BP 148/78 11/11/22 11:35 Pulse Ox 93 11/11/22 11:35 O2 Del Method Room Air 11/11/22 11:35 O2 Flow Rate 2 11/11/22 08:39 Discharge Plan Discharge Patient Disposition: Home Condition: Stable Prescriptions: New benzonatate 100 mg Capsule 200 mg PO TID 7 Days Qty: 42 0RF cefdinir 300 mg capsule 300 mg PO BID 7 Days Qty: 14 0RF Continued lovastatin 40 mg tablet 40 mg PO DAILY metoprolol tartrate 100 mg tablet 100 mg PO BID aspirin [Adult Low Dose Aspirin] 81 mg tablet,delayed release (DR/EC) 81 mg PO DAILY tamsulosin 0.4 mg capsule 0.4 mg PO BID omega-3 fatty acids [Fish Oil Concentrate] 1,000 mg capsule 1,000 mg PO BID metformin 1,000 mg tablet 500 mg PO BID Lantus U-100 Insulin 100 unit/mL solution 17 unit SUBCUT DAILY lidocaine HCl 2 % jelly 1 applic INTRA-URET ONCE Qty: 1 0RF alogliptin 12.5 mg tablet 12.5 mg PO DAILY Qty: 90 3RF famotidine 20 mg Tablet 20 mg PO BID amitriptyline 10 mg Tablet 10 mg PO DAILY Vitamin D3 50 mcg (2,000 unit) Capsule 50 mcg PO DAILY No Action hydrochlorothiazide 25 mg tablet 25 mg PO DAILY lisinopril 40 mg tablet 40 mg PO DAILY Discharge Orders: Discharge Order (Routine); Ordered 11/11/22 Ordered By: Gonzalo Mello Referrals: Man Horta, DO [Primary Care Provider] - 4-7 days (Please call Sunday to schedule your follow up appointment with Dr. Horta.) Discharge Diet: Advance as tolerated and Usual diet Discharge Activity: Resume usual activity and Increase activity as tolerated Patient Instructions: Benzonatate (By mouth), Cefdinir (By mouth), COVID-19 (Co ronavirus Disease 2019) (GEN), Opioid Safety Activity Restrictions/Additional Instructions: 1. Increase activity as tolerated. 2. Isolate for 10 days from symptom onset. 3. Take medications as prescribed. 4. Follow up with PCP. Discharge Attestations Time Spent in Discharge Care*: greater than 30 min Quality Metrics Clinical Quality Measures [ No reported AMI, CVA or VTE this stay] Coding Level of Care Code Acute Code for Chg Fwd Diagnoses Fever R50.9 Acute kidney injury N17.9 COVID-19 U07.1 Hypoxia R09.02 Confusion R41.0 Diabetes type 2, uncontrolled E11.65 Dehydration E86.0
--- NOTE | 2022-11-11 13:40 | PC.NURSE ---
Discharge Note Patient discharged to home via private vehicle accompanied by daughter. Discharge instructions reviewed with patient and/or guest relations representative. Mobile pharmacy medications and/or prescriptions provided. Belongings/home medications returned.
[2022-11-13 12:19] LABS: Angiotensin Converting Enzyme 18 U/L (9-67)
[2022-11-14 17:00] LABS: E. Chaffeensis AB IGG <1:64; E. Chaffeensis AB IGM <1:20
[2022-11-16 20:15] LABS: RMSF IGG NOT DETECTED; RMSF IGM NOT DETECTED
== END 2022-11-11 15:03 | disposition home or self-care (01) | DRG 177 ==
LOC: ER 11-09 00:14 → MEDSURG 11-09 00:31
PROVIDERS: Student in an Organized Health Care Education/Training Program; Admitting Provider Student in an Organized Health Care Education/Training Program; Emergency Provider Emergency Medicine; PCP Emergency Medicine Emergency Medical Services; Visit Provider Internal Medicine
DX: U07.1 COVID-19 (principal); G93.41 Metabolic encephalopathy; N13.8 Other obstructive and reflux uropathy; N39.0 Urinary tract infection, site not specified; N17.9 Acute kidney failure, unspecified; E87.20 Acidosis, unspecified; B96.4 Proteus (mirabilis) (morganii) as the cause of diseases classified elsewhere; Z85.51 Personal history of malignant neoplasm of bladder; N40.1 Benign prostatic hyperplasia with lower urinary tract symptoms; R39.14 Feeling of incomplete bladder emptying; E11.65 Type 2 diabetes mellitus with hyperglycemia; I10 Essential (primary) hypertension; E78.5 Hyperlipidemia, unspecified; Z79.82 Long term (current) use of aspirin; Z79.84 Long term (current) use of oral hypoglycemic drugs; Z79.4 Long term (current) use of insulin; R97.20 Elevated prostate specific antigen [PSA]; R00.0 Tachycardia, unspecified; Z87.440 Personal history of urinary (tract) infections; Z87.891 Personal history of nicotine dependence; E86.0 Dehydration
CPT/HCPCS: 36415; 36416; 36600; 51702; 51798; 70450; 71045; 71250; 74176; 80053; 80061; 81001; 81003; 82164; 82550; 82607; 82746; 82803; 82962; 83036; 83540; 83550; 83605; 83880; 84145; 84443; 84484; 85025; 85378; 85610; 86618; 86666; 86757; 87040; 87077; 87086; 87186; 87486; 87581; 87633; 87641; 93005; 93306; 94640; 96372; 99285; J1100; J1650; J1815; J2543; J7030; J7626

== ENCOUNTER 2023-09-04 11:28 | Outpatient (CLI) | payer OTHER, SELFPAY ==
--- NOTE | 2023-09-04 11:34 | MR_ITS ---
WS: [id number] MRI LEFT KNEE NONCONTRAST TECHNIQUE: Axial PD, coronal PD fat sat, coronal PD, sagittal PD, and sagittal PD fat-sat images obta ined. CLINICAL INFORMATION: FALL W/CONTINUED PAIN COMPARISON: None. FINDINGS: Distal quadriceps and patellar tendons are intact. Normal ACL and PCL. Advanced chondromalacia patell a. Normal medial and lateral patellar retinaculum. Small suprapatellar effusion. Normal lateral menis cus. Complex tear involving the posterior horn medial meniscus with extension to the articular surfac e. Peripheral extrusion of the medial meniscus. Medial and lateral collateral ligaments are intact. Normal popliteus. Fibula head is normal. Tiny pop liteal cyst. MR/MR knee LT wo con* [id number] IMPRESSION: 1. Normal ACL and PCL. 2. Complex tear involving the posterior horn medial meniscus extending to the articular surface and meniscal root. Peripheral extrusion of the medial meniscu s. 3. Advanced chondromalacia patella. 4. Small suprapatellar effusion. Outbridge grading: grade IV: full-thickness cartilage loss with underlying bone reactive changes
== END 2023-09-04 11:29 | disposition home or self-care (01) ==
LOC: RAD 11:28
PROVIDERS: PCP Emergency Medicine Emergency Medical Services; Visit Provider Nurse Practitioner Family
DX: M25.562 Pain in left knee (principal); S83.232A Complex tear of medial meniscus, current injury, left knee, initial encounter; W19.XXXA Unspecified fall, initial encounter; M22.42 Chondromalacia patellae, left knee; M25.462 Effusion, left knee
CPT/HCPCS: 73721

== ENCOUNTER → 2024-03-28 08:57 | Outpatient (BNVA) | payer OTHER, SELFPAY | PROVIDERS: PCP Emergency Medicine Emergency Medical Services; Visit Provider Internal Medicine | DX: E11.65 Type 2 diabetes mellitus with hyperglycemia (principal); E78.5 Hyperlipidemia, unspecified; E11.22 Type 2 diabetes mellitus with diabetic chronic kidney disease; N18.30 Chronic kidney disease, stage 3 unspecified; E11.59 Type 2 diabetes mellitus with other circulatory complications; I25.10 Atherosclerotic heart disease of native coronary artery without angina pectoris; E16.0 Drug-induced hypoglycemia without coma; T38.3X5A Adverse effect of insulin and oral hypoglycemic [antidiabetic] drugs, initial encounter; H26.9 Unspecified cataract; X58.XXXA Exposure to other specified factors, initial encounter; Z79.4 Long term (current) use of insulin; Z79.84 Long term (current) use of oral hypoglycemic drugs | CPT/HCPCS: 36415; 80053; 80061; 82044; 83036; 99214 ==

== ENCOUNTER → 2024-04-17 11:20 | Outpatient (BNVA) | payer OTHER, SELFPAY | PROVIDERS: PCP Emergency Medicine Emergency Medical Services; Visit Provider Internal Medicine | DX: E11.65 Type 2 diabetes mellitus with hyperglycemia (principal); E78.5 Hyperlipidemia, unspecified; E11.22 Type 2 diabetes mellitus with diabetic chronic kidney disease; N18.30 Chronic kidney disease, stage 3 unspecified; E11.59 Type 2 diabetes mellitus with other circulatory complications; I25.10 Atherosclerotic heart disease of native coronary artery without angina pectoris; E16.0 Drug-induced hypoglycemia without coma; T38.3X5A Adverse effect of insulin and oral hypoglycemic [antidiabetic] drugs, initial encounter; H26.9 Unspecified cataract | CPT/HCPCS: 99214 ==

== ENCOUNTER 2024-07-07 08:24 | Outpatient (CLI) | payer OTHER, SELFPAY ==
[2024-07-07 09:18] LABS: Estmated Average Glucose 209; Hemoglobin A1C 8.9 % (4.0-6.0)
[2024-07-07 09:28] LABS: Alanine Aminotransferase 27 U/L (0-41); Albumin Level 4.3 g/dL (3.5-5.2); Alkaline Phosphatase 68 U/L (40-130); Anion Gap 13.1 (5-19); Aspartate Amino Transferase 21 U/L (0-40); Blood Urea Nitrogen 24 mg/dL (8-23); Calcium 10.2 mg/dL (8.5-10.5); Carbon Dioxide 31 mmol/L (22-29); Chloride 98 mmol/L (98-107); Chol HDL Ratio 4.43 mg/dL (1.0-5.00); Cholesterol 155 mg/dL (0-200); Globulin 2.8 g/dL (1.3-4.6); Glucose 198 mg/dL (65-115); HDL Cholesterol 35 mg/dL (60-100); LDL Cholesterol Calculated 75 mg/dL (50-129); LDL HDL Ratio 2.14 RATIO (0.00-3.22); Osmolality Calculated 296 mOsm/kg (285-295); Potassium 4.1 mmol/L (3.5-5.1); Sodium 138 mmol/L (136-145); Total Bilirubin 0.9 mg/dL (0.15-1.2); Total Protein 7.1 g/dL (6.6-8.7); Triglycerides 226 mg/dL (0-150)
[2024-07-07 09:39] LABS: Creatinine Urine, Random 54 mg/dL (39-259); Microalbum Creatinine Ratio Ur 37 mg/dL (0-20); Microalbumin Random Urine 2 ug/dL (0-20)
== END 2024-07-07 08:25 | disposition home or self-care (01) ==
LOC: LAB 08:25
PROVIDERS: PCP Nurse Practitioner Family; Visit Provider Internal Medicine
DX: E11.65 Type 2 diabetes mellitus with hyperglycemia (principal); E78.5 Hyperlipidemia, unspecified; E11.9 Type 2 diabetes mellitus without complications
CPT/HCPCS: 36415; 80053; 80061; 82044; 83036

== ENCOUNTER → 2024-07-16 08:32 | Outpatient (BNVA) | payer OTHER, SELFPAY | PROVIDERS: PCP Nurse Practitioner Family; Visit Provider Internal Medicine | DX: E11.65 Type 2 diabetes mellitus with hyperglycemia (principal); E78.5 Hyperlipidemia, unspecified; E11.22 Type 2 diabetes mellitus with diabetic chronic kidney disease; N18.30 Chronic kidney disease, stage 3 unspecified; E11.59 Type 2 diabetes mellitus with other circulatory complications; I25.10 Atherosclerotic heart disease of native coronary artery without angina pectoris; E16.0 Drug-induced hypoglycemia without coma; T38.3X5A Adverse effect of insulin and oral hypoglycemic [antidiabetic] drugs, initial encounter; H26.9 Unspecified cataract | CPT/HCPCS: 99214 ==

== ENCOUNTER → 2024-07-25 09:01 | Outpatient (BNVA) | payer OTHER, SELFPAY | PROVIDERS: PCP Nurse Practitioner Family; Visit Provider Internal Medicine | DX: E11.65 Type 2 diabetes mellitus with hyperglycemia (principal); E78.5 Hyperlipidemia, unspecified; E11.22 Type 2 diabetes mellitus with diabetic chronic kidney disease; N18.30 Chronic kidney disease, stage 3 unspecified; E11.9 Type 2 diabetes mellitus without complications; E11.59 Type 2 diabetes mellitus with other circulatory complications; I25.10 Atherosclerotic heart disease of native coronary artery without angina pectoris; E16.0 Drug-induced hypoglycemia without coma; T38.3X5A Adverse effect of insulin and oral hypoglycemic [antidiabetic] drugs, initial encounter; H26.9 Unspecified cataract | CPT/HCPCS: 99214 ==

== ENCOUNTER → 2024-08-29 10:02 | Outpatient (BNVA) | payer OTHER, SELFPAY | PROVIDERS: PCP Nurse Practitioner Family; Visit Provider Internal Medicine | DX: E11.65 Type 2 diabetes mellitus with hyperglycemia (principal); E78.5 Hyperlipidemia, unspecified; E11.22 Type 2 diabetes mellitus with diabetic chronic kidney disease; E11.59 Type 2 diabetes mellitus with other circulatory complications; E16.0 Drug-induced hypoglycemia without coma; T38.3X5A Adverse effect of insulin and oral hypoglycemic [antidiabetic] drugs, initial encounter | CPT/HCPCS: 99214 ==

== ENCOUNTER → 2024-10-27 08:16 | Outpatient (BNVA) | payer OTHER, SELFPAY | PROVIDERS: PCP Nurse Practitioner Family; Visit Provider Internal Medicine | DX: E11.65 Type 2 diabetes mellitus with hyperglycemia (principal); E78.5 Hyperlipidemia, unspecified; E11.22 Type 2 diabetes mellitus with diabetic chronic kidney disease; N18.30 Chronic kidney disease, stage 3 unspecified; E11.9 Type 2 diabetes mellitus without complications; E11.59 Type 2 diabetes mellitus with other circulatory complications; I25.10 Atherosclerotic heart disease of native coronary artery without angina pectoris; E16.0 Drug-induced hypoglycemia without coma | CPT/HCPCS: 99214 ==

== ENCOUNTER → 2024-11-28 09:17 | Outpatient (BNVA) | payer OTHER, SELFPAY | PROVIDERS: PCP Nurse Practitioner Family; Visit Provider Internal Medicine | DX: E11.65 Type 2 diabetes mellitus with hyperglycemia (principal); E11.22 Type 2 diabetes mellitus with diabetic chronic kidney disease; E78.5 Hyperlipidemia, unspecified; N18.30 Chronic kidney disease, stage 3 unspecified; E11.59 Type 2 diabetes mellitus with other circulatory complications; E16.0 Drug-induced hypoglycemia without coma | CPT/HCPCS: 99214 ==

== ENCOUNTER 2025-01-23 11:19 | Outpatient (CLI) | payer OTHER, SELFPAY ==
[2025-01-23 13:05] LABS: Estmated Average Glucose 177; Hemoglobin A1C 7.8 % (4.0-6.0)
[2025-01-23 13:13] LABS: Alanine Aminotransferase 22 U/L (0-41); Albumin Level 4.5 g/dL (3.5-5.2); Alkaline Phosphatase 64 U/L (40-130); Anion Gap 14.2 (5-19); Aspartate Amino Transferase 21 U/L (0-40); Blood Urea Nitrogen 21 mg/dL (8-23); Calcium 10.4 mg/dL (8.5-10.5); Carbon Dioxide 26 mmol/L (22-29); Chloride 100 mmol/L (98-107); Cholesterol 161 mg/dL (0-200); Globulin 3.1 g/dL (1.3-4.6); Glucose 203 mg/dL (65-115); HDL Cholesterol 34 mg/dL (60-100); Osmolality Calculated 291 mOsm/kg (285-295); Potassium 4.2 mmol/L (3.5-5.1); Sodium 136 mmol/L (136-145); Total Protein 7.6 g/dL (6.6-8.7); Triglycerides 320 mg/dL (0-150)
[2025-01-23 13:15] LABS: Creatinine Urine, Random 53 mg/dL (39-259); Microalbum Creatinine Ratio Ur 19 mg/dL (0-20)
== END 2025-01-23 11:20 | disposition home or self-care (01) ==
LOC: LAB 11:22
PROVIDERS: PCP Family Medicine Geriatric Medicine; Visit Provider Internal Medicine
DX: E11.65 Type 2 diabetes mellitus with hyperglycemia (principal)
CPT/HCPCS: 36415; 80053; 80061; 82044; 83036

== ENCOUNTER → 2025-01-26 07:59 | Outpatient (BNVA) | payer OTHER, SELFPAY | PROVIDERS: PCP Family Medicine Geriatric Medicine; Visit Provider Internal Medicine | DX: E11.65 Type 2 diabetes mellitus with hyperglycemia (principal); E78.5 Hyperlipidemia, unspecified; E11.22 Type 2 diabetes mellitus with diabetic chronic kidney disease; N18.30 Chronic kidney disease, stage 3 unspecified; E11.59 Type 2 diabetes mellitus with other circulatory complications; I25.10 Atherosclerotic heart disease of native coronary artery without angina pectoris; E16.0 Drug-induced hypoglycemia without coma; T38.3X5A Adverse effect of insulin and oral hypoglycemic [antidiabetic] drugs, initial encounter; H26.9 Unspecified cataract; X58.XXXA Exposure to other specified factors, initial encounter; Z79.4 Long term (current) use of insulin; Z79.84 Long term (current) use of oral hypoglycemic drugs | CPT/HCPCS: 99214 ==